=== PATIENT | male | born 1950 | race Caucasian/White ===

== ENCOUNTER 2021-02-04 10:39 | Inpatient (IN) ==
[2021-02-04 11:02] LABS: Hematocrit 46.6 % (42.0-52.0); Hemoglobin 15.3 gm/dL (13.5-18.0); Mean Cell Volume 85.3 fl (78-100); Mean Corpuscular Hgb Conc 32.8 g/dl (32-36); Mean Platelet Volume 9.1 fl (8-11.3); Neutrophil % 75.6 % (42-75.0); Platelet Count 283 K/mm3 (150-450); Red Blood Count 5.46 M/mm3 (4.7-6.0); Red Cell Distribution Width 14.1 % (11.5-14.0); White Blood Count 5.3 K/mm3 (4.0-10.5)
[2021-02-04 11:13] LABS: Urine Appearance Clear (CLEAR); Urine Bilirubin 3 mg/dl (NEGATIVE); Urine Blood Negative /ul (NEGATIVE); Urine Color Dark Yellow; Urine Ketone 50 mg/dL (NEGATIVE); Urine Nitrite Negative (NEGATIVE); Urine Protein 15 mg/dL (NEGATIVE); Urine Specific Gravity 1.025 SP.GR. (1.005-1.030); Urine Urobilinogen Normal (NORMAL); Urine WBC None Seen /hpf (0-5)
[2021-02-04 11:14] LABS: Urine Bacteria TRACE; Urine RBC None Seen /hpf (0-5)
[2021-02-04 11:19] LABS: Albumin * 3.7 gm/dl (3.4-5.0); Anion Gap 14.3 mmol/L (6.8-13.8); BUN/Creatinine Ratio 24.5 (9.0-21.6); Bilirubin, Total 0.9 mg/dL (0.0-1.1); Ca. Corrected For Albumin 9.1 mg/dL (8.4-10.2); Calcium * 9.2 mg/dL (7.9-10.9); Carbon Dioxide 28.1 mmol/L (24-32.6); Potassium 4.4 mmol/L (3.4-4.6); Total Protein 8.3 gm/dL (6.2-8.2)
[2021-02-04 11:20] LABS: CRP 4.1 mg/dL (0.0-0.9)
[2021-02-04] MEDS ORDERED: DIATRIZOATE MEGLUMINE, SODIUM 30 ML BTL PO ONE (11:31)
--- NOTE | 2021-02-04 14:22 | ERNOTE ---
Abdominal HPI - Narrative Date of Service: 02/04/21 - General Chief Complaint: Abdominal Pain Time Seen by Provider: 02/04/21 11:03 Source: patient, family, RN notes reviewed Exam Limitations: no limitations - Immun/Allergies/Home Medications Immunizatons: IMMUNIZATION HX Immunizations Up to Date Yes Allergies/Adverse Reactions: Allergies No Known Allergies Allergy (Verified 02/04/21 10:40) Home Medications: HOME MEDICATIONS multivitamin 1 tab PO DAILY 02/04/21 [Last Taken Unknown] - History of Present Illness Narrative: Tani is a 70-year-old male who presents to the emergency department for a possible bowel obstruction. He has not had a bowel movement since the . He began having abdominal pain at that time. He had some vomiting the following 2 evenings, but none since. He reports he has not been eating but has been able to tolerate liquids. He has felt like he has to have a bowel movement several times but has only passed a small amount of stool. He took Gas-X yesterday. He felt like this helped for a while and that he was doing better, but his symptoms persisted this morning. He reports having a bowel obstruction 2 years ago. He has no prior history of any abdominal surgeries. He has also never had a colonoscopy. Date (Duration): 01/31/21 Associated Symptoms: Absent: back pain, chest pain, fever/chills, swelling/mass in abdomen Prior Abdominal Problems: Present: similar symptoms Prior Treatment: Absent: recently seen Review of Systems - Review of Systems Constitutional: Present: malaise. Absent: fever, chills EYE: Present: no symptoms reported ENT: Present: no symptoms reported Respiratory: Absent: shortness of breath, cough Cardiology: Absent: chest pain, syncope, edema Gastrointestinal/Abdominal: Present: See HPI Genitourinary: Absent: dysuria, decreased urinary output Musculoskeletal: Absent: muscle pain, joint pain Skin: Absent: rash, lesions Neurological: Absent: headache, dizziness/light-headedness Endocrine: Present: no symptoms reported Hematologic/Lymphatic: Absent: easy bruising, easy bleeding Psych: Present: no symptoms reported Medical History (Last Reviewed 02/04/21 @ 17:09 by Rukhsana Kinciad NP) COVID-19 vaccine series completed Onset Date: ~12/2020 History of intestinal obstruction Onset Date: ~2018 No pertinent family history Surgical History: Surgical History (Last Reviewed 02/04/21 @ 17:09 by Rukhsana Kincaid NP) No pertinent past surgical history Family History: Family History (Last Reviewed 02/04/21 @ 17:09 by Rukhsana Kincaid NP) Other No pertinent family history Social History: (Last Reviewed 02/04/21 @ 17:09 by Rukhsana Kincaid NP) Social History: Marital status: household members: significant other current occupational status: unemployed Highest level of school completed/degree received: Associate degree: occupat Service: No Tobacco: Smoking Status: Former smoker Alcohol: alcohol intake: former Physical Exam - Physical Exam General Appearance: Present: wd/wn, alert, other - In no acute distress but appe ars mildly uncomfortable Head Exam: Present: normal inspection Eye Exam: Normal inspection: bilateral Neck: Present: normal inspection, nontender, supple, full range of motion Respiratory: Present: no respiratory distress, normal breath sounds, no accessory muscle use, lungs clear Cardiovascular/Chest: Present: regular rate, rhythm, normal peripheral pulses, systolic murmur Gastrointestinal/Abdominal: Present: soft, tenderness - Mild, diffuse, abnormal bowel sounds - Hypoactive, distended - Bloated appearance, patient states this is his normal Extremity Exam: Present: normal inspection, normal range of motion, no edema Neurological Exam: Present: alert, oriented, normal mood/affect, no motor/sensory deficits Skin Exam: Present: normal color, warm/dry Progress - Results and Orders Patient's Lab Results:: I have reviewed the patient's lab results. - Vital Signs Patient's Vital Signs:: I have reviewed the patient's vital signs. Vital Signs: Vital Signs 02/04/21 10:43 02/04/21 11:29 Temperature 36.7 C Pulse Rate 84 77 Respiratory Rate 15 15 Blood Pressure 157/80 H 154/61 H O2 Sat by Pulse Oximetry 99 95 - X-Ray X-Ray #1 X-Ray: abdomen Interpretation: Reviewed by me X-ray Comments: Technique: Supine and upright views of the abdomen obtained. A total of 4 images utilized. Comparison: None. Findings: Moderately dilated small bowel with air-fluid levels indicating partial mechanical small bowel obstruction. No pneumatosis or free air. There is air and stool in normal caliber colon and rectum. IMPRESSION: PARTIAL MECHANICAL SMALL BOWEL OBSTRUCTION WITH NO APPRECIABLE FREE AIR. Electronically signed by Victorino Fuller MD. - CT/Ultrasound CT/Ultrasound Narrative: CT abdomen/pelvis: IMPRESSION: 1. MODERATE GRADE PARTIAL COLONIC OBSTRUCTION WITH THE TRANSITION POINT IN THE DISTAL DESCENDING COLON. THIS IS SUSPICIOUS FOR A COLONIC MALIGNANCY UNTIL PROVEN OTHERWISE. 2. COLONIC DIVERTICULA WITH NO ACUTE DIVERTICULITIS. 3. LEFT RENAL CYST. Electronically signed by Victorino Fuller MD. - Progress/Reassessment Chief Complaint: Abdominal Pain Progress:: Unchanged Plan - Plan Plan: The patient did not require any pain medication and was able to tolerate drinking oral contrast for his CT scan without incident. The CT was notable for what appears to be an obstruction in the distal descending colon. Dr. Snyder was contacted and saw the patient in the emergency department. He plans to admit the patient to observation and perform a colonoscopy tomorrow. Bed assignment pending COVID-19 results. Departure Clinical Impression: Colonic obstruction - Departure Disposition: Still a patient Condition: Stable
--- NOTE | 2021-02-04 17:42 | HP ---
Chief Complaint - Chief Complaint Date of Service: 02/04/21 Time of Service: 15:00 Chief Complaint: Possible partial colonic obstruction History of Present Illness: On the morning of 02/01/2021 the patient noticed increased abdominal distention. He did not eat much. He had an episode of dry heaves in the evening and vomited up some yellow stuff followed by clear. The following day (Thursday) he took some Gas-X for about 24 hours. He still felt bloated and did not eat much. He had another episode of dry heaves Thursday night but did not bring up much. He felt some better on Thursday and actually passed some gas, but then the distention returned again today. He states he really does not have abdominal pain he was just sore from dry heaves. He is more comfortable if he lays still. It does not hurt his abdomen when he coughs or goes over bumps. He has not been febrile He apparently had a very similar episode of abdominal distention 2018. He was admitted overnight to the [facility]. They put down an NG tube and the he was fed and sent home. He did not have a CAT scan at that time. He has never had any abdominal operations. He has never had any colon screening studies. There is no family history of colon cancer He generally moves his bowels every other day or so. He occasionally has gone 2-1/2 or 3 days without a bowel movement. He generally does not get distended. He never has abdominal pain and has noticed no blood in his bowel movements although he may have hemorrhoids. He does not see a physician regularly and only takes a daily multiple vitamin Medical History (Last Reviewed 02/04/21 @ 17:34 by Princess Snyder MD) COVID-19 vaccine series completed Onset Date: ~12/2020 History of intestinal obstruction Onset Date: ~2018 No pertinent family history Surgical History: Surgical History (Last Reviewed 02/04/21 @ 17:34 by Princess Snyder MD) No pertinent past surgical history Family History: Family History (Last Reviewed 02/04/21 @ 17:34 by Princess Snyder MD) Other No pertinent family history Social History: (Last Reviewed 02/04/21 @ 17:34 by Princess Snyder MD) Social History: Marital status: household members: significant other current occupational status: unemployed Highest level of school completed/degree received: Associate degree: occupat Service: No Tobacco: Smoking Status: Former smoker Alcohol: alcohol intake: former Review Of Systems (GEN) - Review of Systems Generalized/Overall Review: Absent: Weakness, Chills, Fever, Weight loss EENTM: Present: No Symptoms Reported Respiratory: Present: No Symptoms Reported. Absent: Cough, Shortness of Breath Cardiac: Present: No Symptoms Reported. Absent: Chest Pain, Edema, Palpitations Abdominal: Present: Other - He has had abdominal distention since 02/01/2021. 2 episodes of dry heaves with a small amount of vomitus. He has not been eating much. He did pass some gas yesterday, and felt like he might move his bowels during the CAT scan Genitourinary: Present: Nocturia - Usually gets up once. Absent: Burning, Frequency Musculoskeletal: Present: No Symptoms Reported Neurological: Present: No Symptoms Reported Skin: Present: No Symptoms Reported Endocrine: Present: No Symptoms Reported Immunizations: IMMUNIZATION HX Immunizations Up to Date Yes Allergies/Adverse Reactions: Allergies Allergy/AdvReac Type Severity Reaction Status Date / Time No Known Allergies Allergy Verified 02/04/21 17:56 Home Medications: HOME MEDICATIONS multivitamin 1 tab PO DAILY 02/04/21 [Last Taken Unknown] Exam - Exam Vital Signs: Vital Signs - Last Taken Temp 36.7 C 02/04/21 10:43 Pulse 74 02/04/21 15:30 Resp 22 H 02/04/21 15:30 BP 151/63 H 02/04/21 15:30 Pulse Ox 97 02/04/21 15:30 Constitutional: Present: Alert, Oriented x3, Cooperative, Well developed, Well nourished, No distress, Overweight ENT Exam: Present: normal ENT inspection, other - Upper and lower dentures. Mallampati 2 airway Eye Exam: bilateral eye: normal inspection Neck: Present: non-tender, full range of motion, normal inspection, trachea midline Respiratory: Present: rhonchi - Clear with cough, wheezing - Clears with cough Cardiovascular/Chest: Present: normal peripheral pulses, regular rate, rhythm, no murmur Abdomen: Present: other - Significant abdominal distention with tympany to percussion. No percussion tenderness, discrete direct tenderness or rebound tenderness elicited. No masses. Specifically no tenderness in the left lateral abdomen /Rectal: Present: Exam deferred Extremity: Present: normal range of motion, normal inspection, no pedal edema, no calf tenderness Skin Exam: Present: normal color, warm/dry Neurologic: Present: manager chinese II-XII nml as tested, normal cerebellar test, no motor/sensory deficits, normal mood/affect, oriented x 3 Appearance: Present: appropriate appearance, appropriate insight, neat, no memory impairment Eye contact: Present: cooperative, good eye contact, normal speech Thoughts: Present: normal thought pattern Diagnostic Studies: Abnormal Lab Results 02/04/21 02/04/21 02/04/21 Range/Units 10:30 10:55 10:55 RDW 14.1 H (11.5-14.0) % Neutrophils % 75.6 H (42-75.0) % Lymphocytes % 15.2 L (20-51) % Lymphocytes # 0.80 L (1.5-3.5) k/mm3 Anion Gap 14.3 H (6.8-13.8) mmol/L BUN 25 H (6-23) mg/dL BUN/Creatinine Ratio 24.5 H (9.0-21.6) ALT 18 L (19-67) U/L C-Reactive Prot, Quant (0.0-0.9) mg/dL Total Protein 8.3 H (6.2-8.2) gm/dL Lipase (73-393) U/L Urine Protein 15 H (NEGATIVE) mg/dL Urine Bilirubin 3 H (NEGATIVE) mg/dl 02/04/21 Range/Units 10:55 RDW (11.5-14.0) % Neutrophils % (42-75.0) % Lymphocytes % (20-51) % Lymphocytes # (1.5-3.5) k/mm3 Anion Gap (6.8-13.8) mmol/L BUN (6-23) mg/dL BUN/Creatinine Ratio (9.0-21.6) ALT (19-67) U/L C-Reactive Prot, Quant 4.1 H (0.0-0.9) mg/dL Total Protein (6.2-8.2) gm/dL Lipase 32 L (73-393) U/L Urine Protein (NEGATIVE) mg/dL Urine Bilirubin (NEGATIVE) mg/dl Laboratory Results WBC 5.3 K/mm3 (4.0-10.5) 02/04/21 10:55 RBC 5.46 M/mm3 (4.7-6.0) 02/04/21 10:55 Hgb 15.3 gm/dL (13.5-18.0) 02/04/21 10:55 Hct 46.6 % (42.0-52.0) 02/04/21 10:55 MCV 85.3 fl (78-100) 02/04/21 10:55 MCH 28.0 pg (27-31) 02/04/21 10:55 MCHC 32.8 g/dl (32-36) 02/04/21 10:55 RDW 14.1 % (11.5-14.0) H 02/04/21 10:55 Plt Count 283 K/mm3 (150-450) 02/04/21 10:55 MPV 9.1 fl (8-11.3) 02/04/21 10:55 Immature Gran % (Auto) 0.40 % (0.001-0.429) 02/04/21 10:55 Immature Gran # (Auto) 0.02 K/mm3 (0.000-0.0310) 02/04/21 10:55 Neutrophils % 75.6 % (42-75.0) H 02/04/21 10:55 Lymphocytes % 15.2 % (20-51) L 02/04/21 10:55 Monocytes % 8.4 % (0.0-9) 02/04/21 10:55 Eosinophils % 0.2 % (0.0-3.0) 02/04/21 10:55 Basophils % 0.2 % (0.0-1.0) 02/04/21 10:55 Nucleated RBC % 0.0 k/mm3 (0-1) 02/04/21 10:55 Neutrophils # 4.0 K/mm3 (1.3-6.0) 02/04/21 10:55 Lymphocytes # 0.80 k/mm3 (1.5-3.5) L 02/04/21 10:55 Monocytes # 0.4 k/mm3 (0.0-1.0) 02/04/21 10:55 Eosinophils # 0.0 k/mm3 (0.0-0.7) 02/04/21 10:55 Absolute Basophils 0.0 k/mm3 (0.0-0.1) 02/04/21 10:55 Sodium 135 mmol/L (132-142) 02/04/21 10:55 Plasma Sodium 135 mmol/L (130-142) 02/04/21 10:55 Potassium 4.4 mmol/L (3.4-4.6) 02/04/21 10:55 Chloride 97 mmol/L (97-106) 02/04/21 10:55 Carbon Dioxide 28.1 mmol/L (24-32.6) 02/04/21 10:55 Anion Gap 14.3 mmol/L (6.8-13.8) H 02/04/21 10:55 BUN 25 mg/dL (6-23) H 02/04/21 10:55 Creatinine 1.02 mg/dL (0.4-1.4) 02/04/21 10:55 Est GFR (Non-Af Amer) 77 mL/min (60-130) 02/04/21 10:55 BUN/Creatinine Ratio 24.5 (9.0-21.6) H 02/04/21 10:55 Random Glucose 99 mg/dL (70-110) 02/04/21 10:55 Calcium 9.2 mg/dL (7.9-10.9) 02/04/21 10:55 Calcium Adj for Albumin 9.1 mg/dL (8.4-10.2) 02/04/21 10:55 Total Bilirubin 0.9 mg/dL (0.0-1.1) 02/04/21 10:55 AST 16 U/L (0-48) 02/04/21 10:55 ALT 18 U/L (19-67) L 02/04/21 10:55 Alkaline Phosphatase 94 U/L (50-170) 02/04/21 10:55 C-Reactive Prot, Quant 4.1 mg/dL (0.0-0.9) H 02/04/21 10:55 Total Protein 8.3 gm/dL (6.2-8.2) H 02/04/21 10:55 Albumin 3.7 gm/dl (3.4-5.0) 02/04/21 10:55 Lipase 32 U/L (73-393) L 02/04/21 10:55 Urine Color Dark yellow 02/04/21 10:30 Urine Appearance Clear (CLEAR) 02/04/21 10:30 Urine pH 6.0 pH (5.0-7.0) 02/04/21 10:30 Ur Specific [place] 1.025 SP.GR. (1.005-1.030) 02/04/21 10:30 Urine Protein 15 mg/dL (NEGATIVE) H 02/04/21 10:30 Urine Glucose (UA) Negative mg/dL (NEGATIVE) 02/04/21 10:30 Urine Ketones 50 mg/dL (NEGATIVE) 02/04/21 10:30 Urine Blood Negative /ul (NEGATIVE) 02/04/21 10:30 Urine Nitrate Negative (NEGATIVE) 02/04/21 10:30 Urine Bilirubin 3 mg/dl (NEGATIVE) H 02/04/21 10:30 Urine Urobilinogen Normal EU/dl (NORMAL) 02/04/21 10:30 Ur Leukocyte Esterase Negative /ul (NEGATIVE) 02/04/21 10:30 Urine RBC None seen /hpf (0-5) 02/04/21 10:30 Urine WBC None seen /hpf (0-5) 02/04/21 10:30 Ur Epithelial Cells 0-5 /hpf (0-5) 02/04/21 10:30 Urine Bacteria Trace (NONE) 02/04/21 10:30 Urine Culture Comments No culture indicated 02/04/21 10:30 SARS-CoV-2 (PCR) Not detected (NotDetected) 02/04/21 15:51 Initial abdominal x-ray revealed findings suggesting small bowel obstruction. Subsequent CT scan with p.o. contrast reveals a very capacious colon with gas through to the rectum. There is an area at the descending sigmoid junction which does not fill out completely Assessment/Plan - Assessment/Plan (1) Colonic obstruction Assessment: He has had no previous dedicated colon studies. He has a very distended colon with possible lesion at the sigmoid descending colon junction. There is gas distal to this, and the sigmoid is redundant. He has had a previous similar episode about 2 years ago. Benefits of colonoscopy and colon screening were reviewed with him and his and given to them. Explained the rationale for observation status for n.p.o. with IV hydration. There is not much stool in the colon on CAT scan and the p.o. contrast may produce some results, so will monitor his progress prior to administering additional prep prior to anticipated colonoscopy tomorrow. Encouraged ambulation to aid with colonic movement and also for VTE prophylaxis. Problem: Acute
[2021-02-04] MEDS ORDERED: BISACODYL 10 MG SUPP.RECT RC ONE (17:57)
[2021-02-05] MEDS ORDERED: SODIUM, POTASSIUM,MAG SULFATES 1 KIT KIT PO ONE (07:01)
[2021-02-05] MEDS: RINGER'S SOLUTION,LACTATED 1,000 ML IV PRN (07:16)
--- NOTE | 2021-02-05 12:48 | ANES ---
Anesthesia Pre Procedure Eval Vitals/Labs: Last Vital Signs Temp 36.8 C 02/05/21 10:37 Pulse 81 02/05/21 10:37 Resp 20 02/05/21 10:37 BP 166/76 H 02/05/21 10:37 Pulse Ox 95 02/05/21 10:37 HOME MEDICATIONS multivitamin 1 tab PO DAILY 02/04/21 [Last Taken Unknown] Allergies/Adverse Reactions: Allergies Allergy/AdvReac Type Severity Reaction Status Date / Time No Known Allergies Allergy Verified 02/04/21 17:56 - Planned Procedure Planned Procedure: colonic obstruction Medication List Reviewed:: Yes Allergies Verified: Yes Medical History (Last Reviewed 02/05/21 @ 12:47 by Billy Carmona CRNA) COVID-19 vaccine series completed Onset Date: ~12/2020 History of intestinal obstruction Onset Date: ~2018 No pertinent family history Surgical History (Last Reviewed 02/05/21 @ 12:48 by Billy Carmona CRNA) No pertinent past surgical history Family History (Last Reviewed 02/05/21 @ 12:48 by Billy Carmona CRNA) Other No pertinent family history - Family Anesthesia History Family History:: no untoward family reactions to anesthesia - Airway/Neck/Teeth Within Normal Limits:: Yes Denture Type: Full upper, Full lower Neck Exam: full range of motion Mallampatti Score: 2 Thyromental (T-M) distance: > 6 cm Mandibulo Hyoid distance: > 3 cm - Respiratory Respiratory Physical: lungs clear Smoking Status: Former smoker Sleep Apnea currently treated: No Sleep Apnea by current assessment: No - Cardiovascular Tolerate Activity: Fair Heart Sounds: S1 & S2, Regular, Murmur - Gastrointestinal NPO since: [place] - Anesthesia Assessment and Plan ASA Class: PS, III Anesthesia Type Plan: General ET Planned difficult intubation/equipment available: No
[2021-02-05] MEDS ORDERED: ONDANSETRON HCL/PF 2 MG/ML VIAL ONE (14:24)
[2021-02-05] MEDS ORDERED: PROPOFOL VIAL IV ONE (14:24)
[2021-02-05] MEDS ORDERED: ROCURONIUM BROMIDE 10 MG/ML VIAL ONE (14:25)
[2021-02-05] MEDS ORDERED: SUCCINYLCHOLINE CHLORIDE 20 MG/ML VIAL ONE (14:25)
--- NOTE | 2021-02-05 15:52 | ANES ---
Post Anesthesia Discharge - Transfer of Care Transfer of Care handoff given to nurse: Yes - Discharge from PACU Discharge from PACU when meets criteria: Yes - Awake and comfortable.
--- NOTE | 2021-02-05 16:11 | ANES ---
Post Anesthesia Assessment - Vital Signs Vitals: Last Vital Signs Temp 37.0 C 02/05/21 16:00 Pulse 79 02/05/21 16:00 Resp 20 02/05/21 16:00 BP 135/70 02/05/21 16:00 Pulse Ox 95 02/05/21 16:00 Airway Patency: Normal - Mental Status Level Of Consciousness: Awake, Alert, Appropriate - Pain Level Pain Score: 0 - N/V Assessment Nausea/Vomiting Presence: None Dehydration:: No
--- NOTE | 2021-02-05 17:59 | OR ---
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 CAT scan demonstrates area of possible tumor at the junction of descending and sigmoid colon. 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 General endotracheal anesthetic was administered. A nasogastric tube was passed. The patient was then placed in the left lateral position with appropriate padding and monitoring. The perineum was inspected. There was no evidence of pilonidal disease or skin breakdown. The external appearance of the anus was normal. Sphincter tone was good. The flexible fiberoptic colonoscope was inserted into the rectum. The rectal mucosa and submucosal vascular pattern appeared normal. There was residual liquid stool however the scope could be safely advanced under direct vision. The scope was advanced through the sigmoid colon without air insufflation. At approximately 50 cm a neoplastic lesion was encountered. The area was then irrigated with saline and suctioned. The lesion was circumferential in nature, and the central opening was insufficient to allow safe intubation. A biopsy of the lesion was obtained. The area appeared hemostatic. The scope was then withdrawn slightly and suction used in an attempt to decompress the proximal colon as much as possible. The scope was then slowly withdrawn and the distal colon inspected. There were no polyps identified, and no diverticular openings were demonstrated. The scope was gradually withdrawn to the level of the rectum. As much proximal bowel content as possible was removed with suction. The scope was withdrawn from the patient and the procedure terminated. The patient tolerated the anesthetic and procedure well without complication and was transferred recovery room awake, extubated, and in stable condition. A chest x-ray was obtained in the recovery room. The NG tube was advanced sufficient to allow the proximal side-port to be in the stomach. The patient was then transferred back to the floor awake and in stable condition. I discussed the findings with the patient and his family. I explained that the bowel was completely obstructed and he would require an operation to relieve the obstruction. A pamphlet was used to demonstrate the proposed resection. The risks and possible complications of the surgery were explained and discussed in detail. After an interactive discussion his questions were answered to his apparent satisfaction and he has given informed consent for a colon resection. He understands that a colostomy may be needed if anastomosis does not appear safe.
--- NOTE | 2021-02-05 18:06 | PN ---
Subjective - Date and Time Seen Date: 02/05/21 Time: 17:59 Subjective Narrative: He was admitted last night with abdominal distention and CAT scan evidence of colon obstruction at the junction of the descending and sigmoid colon. 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 A nasogastric tube was placed. Objective - Review of Systems Generalized/Overall Review: Denies: Chills, Fever EENTM: Reports: No Symptoms Reported, Other - Some discomfort from the nasogastric tube in the left nostril Respiratory: Denies: Cough, Shortness of Breath Cardiac: Denies: Chest Pain Abdominal: Reports: Other - He states his abdomen feels much better. He feels l ess distended Genitourinary Symptoms: Reports: No Symptoms Reported Musculoskeletal Complaints: Reports: No Symptoms Reported Neurological: Reports: No Symptoms Reported Skin: Reports: No Symptoms Reported - Vitals Vitals: Last Vital Signs Temp 37.0 C 02/05/21 16:00 Pulse 79 02/05/21 16:00 Resp 20 02/05/21 16:00 BP 135/70 02/05/21 16:00 Pulse Ox 95 02/05/21 16:00 - EKG/Xray Findings XRAY: chest - The portable chest x-ray was reviewed by me in the recovery room and the nasogastric tube adjusted prior to the formal read by the radiologist. - Exam Constitutional: Present: Alert, Oriented x3, Cooperative, No distress ENT Exam: Present: normal ENT inspection, other - NG tube left nostril Neck: Present: full range of motion, normal inspection Respiratory: Present: no respiratory distress Cardiovascular/Chest: Present: regular rate, rhythm Abdomen: Present: other - He is still distended, but less so. Tympanic however no percussion, direct, or rebound tenderness. /Rectal: Present: Other - Exam in the OR was normal Skin Exam: Present: normal color, warm/dry Neurologic: Present: cotton dispatcher II-XII nml as tested, no motor/sensory deficits Appearance: Present: appropriate appearance, appropriate insight, no memory impairment Eye contact: Present: cooperative, good eye contact, normal speech Thoughts: Present: normal thought pattern, no apparent hallucination Assessment/Plan Plan Narrative: A pamphlet on: Surgery was reviewed with him and his family. I explained that the lesion in the colon is most likely a carcinoma. He will need an operation to relieve the obstruction. Explained either diverting colostomy, resection with colostomy, or a primary operation with reanastomosis. There is a risk of infection or anastomotic leak however the one stage operation is feasible. I explained the possible risks and complications of the surgery as well as the expected postoperative course. Other treatment options will depend upon the final pathology report on the resected specimen. After an interactive discussion his questions were answered to his apparent satisfaction and he has given informed consent for colon resection which will be performed tomorrow. Plan would be for preoperative antibiotics preop, SCDs, epidural for postoperative pain control. We will have him start incentive spirometry tonight for practice. - Problems/Diagnosis (1) Colonic obstruction Problem: Acute
[2021-02-05] MEDS ORDERED: CEFOXITIN SODIUM 2 GM in DEXTROSE 5 % IN WATER 100 ML IV ONE ×2 (18:07)
[2021-02-06] MEDS: RINGER'S SOLUTION,LACTATED 1,000 ML IV PRN ×5 (00:14→16:53)
[2021-02-06] MEDS ORDERED: CEFOXITIN SODIUM 2 GM in DEXTROSE 5 % IN WATER 100 ML IV PRN ×2 (06:00)
[2021-02-06] MEDS ORDERED: LIDOCAINE HCL 20 ML VIAL ONE (12:11)
[2021-02-06] MEDS ORDERED: ONDANSETRON HCL/PF 2 MG/ML VIAL ONE (12:12)
[2021-02-06] MEDS ORDERED: NEOSTIGMINE METHYLSULFATE 1 MG/ML VIAL ONE (12:12)
[2021-02-06] MEDS ORDERED: GLYCOPYRROLATE 0.2 MG/ML VIAL ONE (12:12)
[2021-02-06] MEDS ORDERED: PROPOFOL VIAL IV ONE (12:12)
[2021-02-06] MEDS ORDERED: fentaNYL CITRATE/PF 50 MCG/ML AMPUL ONE (12:12)
[2021-02-06] MEDS ORDERED: SUCCINYLCHOLINE CHLORIDE 20 MG/ML VIAL ONE (12:13)
[2021-02-06] MEDS ORDERED: ROCURONIUM BROMIDE 10 MG/ML VIAL ONE (12:13)
[2021-02-06] MEDS ORDERED: HYDROmorphone HCL 2 MG/ML VIAL IV PRN (12:27)
[2021-02-06] MEDS ORDERED: diphenhydrAMINE HCL 50 MG/ML VIAL IV PRN (12:27)
[2021-02-06] MEDS ORDERED: NALOXONE HCL 0.4 MG/ML VIAL IV PRN (12:27)
[2021-02-06] MEDS ORDERED: PROCHLORPERAZINE EDISYLATE 5 MG/ML VIAL IV PRN (12:27)
[2021-02-06] MEDS ORDERED: BACITRACIN 50,000 UNITS VIAL ONE (14:38)
[2021-02-06] MEDS ORDERED: MIDAZOLAM HCL/PF 1 MG/ML VIAL ONE (14:58)
[2021-02-06] MEDS: BUPIVACAINE HCL/0.9 % NACL/PF 250 ML EP PRN (16:00)
[2021-02-06] MEDS ORDERED: BACITRACIN 50,000 UNITS VIAL IR ONE (16:24)
--- NOTE | 2021-02-06 20:18 | ANES ---
Post Anesthesia Discharge - Transfer of Care Transfer of Care handoff given to nurse: Yes - Discharge from PACU Discharge from PACU when meets criteria: Yes - Discharge to ASU Discharge to ASU-no complications/pt stable: Yes
[2021-02-06] MEDS: HYDROmorphone HCL 2 MG/ML VIAL IV PRN (20:28)
--- NOTE | 2021-02-06 20:29 | ANES ---
Anesthesia Pre Procedure Eval Vitals/Labs: Last Vital Signs Temp 36.9 C 02/06/21 20:00 Pulse 77 02/06/21 20:20 Resp 29 H 02/06/21 20:20 BP 109/44 02/06/21 20:20 Pulse Ox 98 02/06/21 20:20 HOME MEDICATIONS multivitamin 1 tab PO DAILY 02/04/21 [Last Taken Unknown] Allergies/Adverse Reactions: Allergies Allergy/AdvReac Type Severity Reaction Status Date / Time No Known Allergies Allergy Verified 02/04/21 17:56 - Planned Procedure Planned Procedure: colonic obstruction Medication List Reviewed:: Yes Allergies Verified: Yes Medical History (Last Reviewed 02/05/21 @ 12:47 by Billy Carmona CRNA) COVID-19 vaccine series completed Onset Date: ~12/2020 History of intestinal obstruction Onset Date: ~2018 No pertinent family history Surgical History (Last Reviewed 02/05/21 @ 12:48 by Billy Carmona CRNA) No pertinent past surgical history Family History (Last Reviewed 02/05/21 @ 12:48 by Billy Carmona CRNA) Other No pertinent family history - Family Anesthesia History Family History:: no untoward family reactions to anesthesia, no familial bleeding tendencies, no family history of clotting disorders, no family history of premature - Airway/Neck/Teeth Within Normal Limits:: Yes Teeth Condition: intact Denture Type: Full upper, Full lower Mallampatti Score: 3 Thyromental (T-M) distance: > 6 cm Mandibulo Hyoid distance: > 3 cm - Respiratory Respiratory Physical: lungs clear Smoking Status: Former smoker Discussed smoking cessation including day of surgery: No Sleep Apnea currently treated: No Sleep Apnea by current assessment: No Discussed Risks/Treatment of LEO: No - Cardiovascular Tolerate Activity: Fair Heart Sounds: S1 & S2, Regular - Gastrointestinal NPO since: mn - Anesthesia Assessment and Plan ASA Class: PS, III Anesthesia Type Plan: General ET, Epidural - epidural for postop analgesia
--- NOTE | 2021-02-06 20:50 | ANES ---
Post Anesthesia Assessment - Vital Signs Vitals: Last Vital Signs Temp 37.4 C 02/06/21 20:45 Pulse 80 02/06/21 20:45 Resp 12 02/06/21 20:45 BP 112/52 02/06/21 20:45 Pulse Ox 96 02/06/21 20:45 Airway Patency: Normal - Mental Status Level Of Consciousness: Awake - Pain Level Pain Score: 9 - N/V Assessment Nausea/Vomiting Presence: None Dehydration:: No
--- NOTE | 2021-02-06 22:43 | OR ---
Operative Report - Dictated Report Narrative: OPERATIVE REPORT DATE OF OPERATION: 02/06/2021 PREOPERATIVE DIAGNOSIS: Left colon cancer with colon obstruction POSTOPERATIVE DIAGNOSIS: Same (pathology pending) OPERATION: Left colon resection with Jaziel procedure (end descending colostopy and Jaziel pouch) SURGEON: Princess Snyder MD ANESTHESIA: Epidural/general endotracheal Eddie Chadwick CRNA INDICATIONS FOR PROCEDURE: The patient is a 70-year-old male presented with 4- day history of obstipation and abdominal distention. He was found to have CT scan evidence of high-grade obstruction from a possible lesion in the left colon. He underwent endoscopy which revealed a lesion at 50 cm which appeared grossly malignant. The lesion could not be traversed. A biopsy was taken. He has remained obstructed despite NG suction. FINDINGS: Colon obstruction from a 5-7 cm mass at the junction between the descending and sigmoid colon, adherent to the anterolateral abdominal wall. NARRATIVE OF PROCEDURE: The patient was identified preoperatively and prior to the administration of anesthetic a multidisciplinary timeout was observed. An epidural catheter was placed, the patient was placed supine, SCDs were applied, and general endotracheal anesthetic was administered. A Adam catheter was plac ed. The patient's abdomen was prepped with Betadine and a generous operating field outlined with 4 sterile towels. The remainder the patient was covered with a sterile disposable drape. A midline skin incision was made scarring to the left of the umbilicus. Dissection was carried through subcutaneous tissue with electrocautery until the fascia of the linea alba was encountered. This was incised. The peritoneum was elevated and incised to allow entry into the abdomen under direct vision. The small intestine immediately visible was slightly dilated but appeared otherwise normal. There was no immediate peritoneal fluid. The fascial and peritoneal incisions were extended. Manual exploration revealed the NG tube to be in good position in the mid stomach. The surface of the liver was smooth to palpation. A firm mass was palpated in the left lateral abdomen a Bookwalter self-retaining retractor was placed moist laparotomy packs were used to expose the left lateral abdomen. The dilated descending colon and collapsed sigmoid colon were then traced to the mass which was densely adherent to the left anterolateral abdominal wall. The peritoneum of the abdominal wall around the mass was incised and the mass dissected free from the lateral abdominal wall. There was leakage of stool which was controlled by application of a bowel clamp proximal to the tumor. The area was irrigated with bacitracin containing saline until clean. A point was chosen in the sigmoid colon distal to the mass and the bowel transected with a MARYLOU stapling device. The mesocolon was then developed with a LigaSure to allow mobilization of the bowel up to the tumor. Dissection was then continued behind the tumor until the descending colon was mobilized as well, up to the splenic flexure. Normal appearing descending colon was then transected proximal to the tumor with a MARYLOU stapling device. The colon specimen was then passed to the back table. The lateral abdomen was then again irrigated with bacitracin containing saline until the return was clear. The area where the tumor was adherent to the abdominal wall was inspected, and additional tissue was removed and submitted separately to pathology. Next attention was turned to creating a colostomy. A circular portion of skin was removed from the left upper quadrant and dissection carried through subcutaneous tissue until the musculature was encountered. The muscle was then split with offset cruciate incisions until the abdomen was entered. The end of the descending colon was then brought through the opening. After receiving a correct sponge needle and instrument count attention was turned to closing the abdomen. The abdomen was then again thoroughly irrigated with bacitracin containing saline. There was no evidence of gross residual contamination. Hemostasis appeared complete. A large round Bigg-Lawler drain was placed adjacent to the area of resection along the left gutter and brought out through the skin of the left lower quadrant using a trocar. It was secured to the skin with a silk suture, dressed with a split Mepilex border, and connected to its own suction container. The small bowel and greater omentum were placed in an anatomic position. The fascia and peritoneum were approximated with a running suture of PDS. The subcutaneous tissue was irrigated clean and packed with 2 inch iodoform gauze. A dressing of Mepilex border and Medipore tape was applied. Attention was then directed to maturing the colostomy. The bowel was secured circumferentially to the layers of the musculature of the abdominal wall with interrupted sutures of 2-0 antibiotic- containing Vicryl. The bowel was then secured to the skin with interrupted sutures of 2-0 antibiotic-containing Vicryl. The colostomy was then opened and matured circumferentially to the skin surface with interrupted sutures of 3-0 chromic. The colostomy was seen to be viable, palpably widely patent, with production of gas and liquid stool. An ostomy wafer and appliance were then placed. The operative procedure was terminated at this point. The patient tolerated the anesthetic and procedure well. There was no measurable blood loss. He was transferred to the recovery room awake, extubated, and in stable condition. I explained the operative findings and operative procedure to his using diagrams and a pamphlet. Explained what to expect in terms of postoperative course, and that future treatment will depend upon the fineal pathology report and the patient's progress. She was encouraged to write down questions she or her family have to make sure they are addressed as we go. Reviewed and electronically signed
--- NOTE | 2021-02-06 22:47 | PN ---
Dictated Progress Note - Date and Time Seen: Date: 02/06/21 Time: 22:44 - Progress Note Narrative: Vital Signs - Last Taken Temp 37.4 C 02/06/21 20:45 Pulse 80 02/06/21 20:45 Resp 12 02/06/21 20:45 BP 112/52 02/06/21 20:45 Pulse Ox 96 02/06/21 20:45 The patient states he is comfortable. He denies discomfort except some stiffness in his shoulders. His vital signs are stable. He is well oxygenated. He is making good urine. His dressings are dry there is a small amount of stool in the colostomy. I had a long discussion with the patient's and explained what was done at surgery using diagrams and a pamphlet. Plan at this time is to continue NG suction with IV hydration. The epidural will stay in place for 3 days. SCDs will be used for VTE prophylaxis. He will be maintained on IV Zosyn. The Adam catheter will be removed timely.
[2021-02-06] MEDS: PIPERACILLIN SODIUM/TAZOBACTAM 3.375 GM in DEXTROSE 5 % IN WATER 100 ML IV SCH ×2 (23:38)
[2021-02-07] MEDS: RINGER'S SOLUTION,LACTATED 1,000 ML IV PRN ×2 (01:12→08:00)
[2021-02-07 06:26] LABS: Hematocrit 36.1 % (42.0-52.0); Hemoglobin 11.6 gm/dL (13.5-18.0); Mean Cell Volume 87.6 fl (78-100); Mean Corpuscular Hemoglobin 28.2 pg (27-31); Mean Corpuscular Hgb Conc 32.1 g/dl (32-36); Mean Platelet Volume 9.6 fl (8-11.3); Neutrophil # 5.7 K/mm3 (1.3-6.0); Neutrophil % 89.1 % (42-75.0); Platelet Count 165 K/mm3 (150-450); Red Blood Count 4.12 M/mm3 (4.7-6.0); Red Cell Distribution Width 14.3 % (11.5-14.0); White Blood Count 6.4 K/mm3 (4.0-10.5)
[2021-02-07 06:33] LABS: Albumin * 2.3 gm/dl (3.4-5.0); Anion Gap 14.3 mmol/L (6.8-13.8); Bilirubin, Total 0.9 mg/dL (0.0-1.1); Ca. Corrected For Albumin 8.6 mg/dL (8.4-10.2); Calcium * 7.6 mg/dL (7.9-10.9); Carbon Dioxide 28.9 mmol/L (24-32.6); Potassium 3.2 mmol/L (3.4-4.6); Total Protein 5.4 gm/dL (6.2-8.2)
[2021-02-07] MEDS: PIPERACILLIN SODIUM/TAZOBACTAM 3.375 GM in DEXTROSE 5 % IN WATER 100 ML IV SCH ×4 (06:42→14:13)
--- NOTE | 2021-02-07 07:37 | PN ---
Subjective - Date and Time Seen Date: 02/07/21 Time: 07:35 Subjective Narrative: Patient states pain is well controlled. He had a good night sleep. Objective Objective Narrative: Thoracic epidural intact and secured to back. - Review of Systems Generalized/Overall Review: Reports: No Symptoms Reported - Vitals Vitals: Last Vital Signs Temp 36.8 C 02/07/21 06:39 Pulse 83 02/07/21 06:39 Resp 16 02/07/21 06:39 BP 112/49 02/07/21 06:39 Pulse Ox 90 L 02/07/21 06:39 - Abnormal Lab Findings Abnormal Lab Findings: Abnormal Lab Results 02/07/21 02/07/21 Range/Units 06:16 06:16 RBC 4.12 L (4.7-6.0) M/mm3 Hgb 11.6 L (13.5-18.0) gm/dL Hct 36.1 L (42.0-52.0) % RDW 14.3 H (11.5-14.0) % Neutrophils % 89.1 H (42-75.0) % Lymphocytes % 5.1 L (20-51) % Lymphocytes # 0.33 L (1.5-3.5) k/mm3 Potassium 3.2 L D (3.4-4.6) mmol/L Anion Gap 14.3 H (6.8-13.8) mmol/L Calcium 7.6 L (7.9-10.9) mg/dL ALT 13 L (19-67) U/L Total Protein 5.4 L (6.2-8.2) gm/dL Albumin 2.3 L (3.4-5.0) gm/dl - Exam Constitutional: Present: Alert, Oriented x3, Cooperative, No distress Extremity: Present: normal range of motion Cauti Physician Documentation - Urinary Catheter Management Coude Date of Insertion: 02/06/21 Time of Insertion: 15:55 Assessment/Plan Plan Narrative: Continue thoracic epidural at current settings.
[2021-02-07] MEDS: POTASSIUM CHLORIDE 20 MEQ in 0.5 NORMAL SALINE 1,000 ML IV SCH ×3 (09:49→21:55)
[2021-02-07] MEDS: PANTOPRAZOLE SODIUM 40 MG in NORMAL SALINE 100 ML IV SCH (10:27)
[2021-02-07] MEDS: BUPIVACAINE HCL/0.9 % NACL/PF 250 ML EP PRN (11:40)
[2021-02-07] MEDS: ACETAMINOPHEN 1,000 MG/100 ML BTL IV PRN (12:35)
--- NOTE | 2021-02-07 14:12 | PN ---
Subjective - Date and Time Seen Date: 02/07/21 Time: 14:03 Subjective Narrative: He was originally admitted with a 4-day history of obstipation and abdominal distention. Initial CT scan showed questionable partial colonic obstruction from a potential lesion at the junction of the descending and sigmoid colon. He underwent colonoscopy with the visualization of a malignant lesion which could not be traversed. A biopsy was taken. He was taken to the operating room yesterday and underwent a Jaziel procedure following resection of the obstruction. He has some numbness and decreased use of his lower extremities left greater than right. He does not have much abdominal discomfort. He did have some shoulder discomfort. His vital signs have remained stable however today he has a temperature elevation to 38 1. His sodium is upper limits of normal and his potassium is 3.2. His his urine output has remained adequate but low. He is having stool through the colostomy but there is still significant NG output. Minimal LOTUS output. Objective - Review of Systems Generalized/Overall Review: Reports: Fever. Denies: Chills EENTM: Reports: No Symptoms Reported, Other - He had a little heartburn from the NG tube Respiratory: Reports: Other - Is using his incentive spirometer. Denies: Cough, Shortness of Breath Cardiac: Denies: Chest Pain, Palpitations Abdominal: Reports: Other - He states his abdominal pain is controlled with the epidural Genitourinary Symptoms: Reports: No Symptoms Reported, Other - Adam functioning well Musculoskeletal Complaints: Denies: Joint Pain, Back Pain, Neck Pain Neurological: Reports: Numbness, Weakness - Secondary to the epidural Skin: Reports: Other - He has some flushing - Vitals Vitals: Last Vital Signs Temp 38.0 C 02/07/21 13:31 Pulse 83 02/07/21 13:31 Resp 16 02/07/21 10:34 BP 115/48 02/07/21 13:31 Pulse Ox 94 02/07/21 13:31 - Abnormal Lab Findings Abnormal Lab Findings: Abnormal Lab Results 02/07/21 02/07/21 Range/Units 06:16 06:16 RBC 4.12 L (4.7-6.0) M/mm3 Hgb 11.6 L (13.5-18.0) gm/dL Hct 36.1 L (42.0-52.0) % RDW 14.3 H (11.5-14.0) % Neutrophils % 89.1 H (42-75.0) % Lymphocytes % 5.1 L (20-51) % Lymphocytes # 0.33 L (1.5-3.5) k/mm3 Potassium 3.2 L D (3.4-4.6) mmol/L Anion Gap 14.3 H (6.8-13.8) mmol/L Calcium 7.6 L (7.9-10.9) mg/dL ALT 13 L (19-67) U/L Total Protein 5.4 L (6.2-8.2) gm/dL Albumin 2.3 L (3.4-5.0) gm/dl - Exam Constitutional: Present: Alert, Oriented x3, Cooperative, Well nourished, Mild distress ENT Exam: Present: normal ENT inspection, other - Flushed Neck: Present: full range of motion, normal inspection Respiratory: Present: no respiratory distress Cardiovascular/Chest: Present: regular rate, rhythm - Occasional skipped beat (not new) Abdomen: Present: other - Minimal drainage at the lower end of the dressing on the abdomen. Functioning colostomy. Sanguinous LOTUS output Extremity: Present: other - He can move his left leg a little bit cannot move his right leg. Skin Exam: Present: other - Flushed Neurologic: Present: other - He can minimally move his left leg but cannot move the right leg and has some numbness Appearance: Present: appropriate appearance, appropriate insight, no memory impairment Eye contact: Present: cooperative, good eye contact, normal speech Thoughts: Present: normal thought pattern Cauti Physician Documentation - Urinary Catheter Management Coude Reason for Continuing Indwelling Catheter: Measure accurate output Date of Insertion: 02/06/21 Time of Insertion: 15:55 Assessment/Plan Plan Narrative: I discussed the findings of the operation and what was done at length with the patient. He has colostomy function. Still has significant NG output. Some numbness and weakness from the epidura, however has improved over the course of the day. His pain is controlled Most likely source for his elevated temperature is atelectasis as he had just quit smoking prior to the recent hospitalization. We will stressed the use of incentive spirometer and add Coronet. Continue IV Zosyn We will change IV fluids to D5 0.45 with 20 mill equivalents of potassium and increase the IV rate to 175 mL/h. We will continue the catheter to accurately monitor urine output Continue SCDs. - Problems/Diagnosis (1) Colonic obstruction Problem: Acute
--- NOTE | 2021-02-07 18:39 | PN ---
Subjective - Date and Time Seen Date: 02/06/21 Time: 09:00 Subjective Narrative: This progress note was entered to cover the visit(s) on 03/10/2021 because the original progress note from 03/09/2021 was entered in the wrong format. He was originally admitted with a 4-day history of obstipation and abdominal distention. Initial CT scan showed questionable partial colonic obstruction from a potential lesion at the junction of the descending and sigmoid colon. He underwent colonoscopy with the visualization of a malignant lesion which could not be traversed. He has had no bowel activity with nasogastric suction Objective - Review of Systems Generalized/Overall Review: Denies: Chills, Fever EENTM: Reports: No Symptoms Reported, Other - Some rotation from the NG tube Respiratory: Denies: Cough, Shortness of Breath Cardiac: Denies: Chest Pain, Palpitations Abdominal: Reports: Other - He is still distended. He is "uncomfortable" but there is no "pain". Denies: Nausea, Vomiting Genitourinary Symptoms: Reports: No Symptoms Reported Musculoskeletal Complaints: Reports: No Symptoms Reported Neurological: Reports: No Symptoms Reported Skin: Reports: No Symptoms Reported - Vitals Vitals: Last Vital Signs Temp 36.3 02/06/21 06;00 Pulse 73 02/06/21 06;00 Resp 16 02/06/21 06;00 BP 101/55 02/06/21 06;00 Pulse Ox 94 02/06/21 06;00 - Abnormal Lab Findings Abnormal Lab Findings: Abnormal Lab Results 02/07/21 02/07/21 Range/Units 06:16 06:16 RBC 4.12 L (4.7-6.0) M/mm3 Hgb 11.6 L (13.5-18.0) gm/dL Hct 36.1 L (42.0-52.0) % RDW 14.3 H (11.5-14.0) % Neutrophils % 89.1 H (42-75.0) % Lymphocytes % 5.1 L (20-51) % Lymphocytes # 0.33 L (1.5-3.5) k/mm3 Potassium 3.2 L D (3.4-4.6) mmol/L Anion Gap 14.3 H (6.8-13.8) mmol/L Calcium 7.6 L (7.9-10.9) mg/dL ALT 13 L (19-67) U/L Total Protein 5.4 L (6.2-8.2) gm/dL Albumin 2.3 L (3.4-5.0) gm/dl - Exam Constitutional: Present: Alert, Oriented x3, Cooperative, Well developed, Well nourished, Mild distress ENT Exam: Present: normal ENT inspection, other - NG tube in good position Neck: Present: full range of motion, normal inspection Respiratory: Present: no respiratory distress Cardiovascular/Chest: Present: regular rate, rhythm Abdomen: Present: other - Is still distended but slightly less so. Soft. Very tympanic. No percussion tenderness. No discrete point tenderness or rebound tenderness elicited /Rectal: Present: Exam deferred Extremity: Present: normal range of motion, normal inspection, no pedal edema, no calf tenderness Skin Exam: Present: normal color, warm/dry Neurologic: Present: head strength and conditioning coach II-XII nml as tested, normal cerebellar test, no motor/sensory deficits Appearance: Present: appropriate appearance, appropriate insight, no memory impairment Eye contact: Present: cooperative, good eye contact, normal speech Thoughts: Present: normal thought pattern Assessment/Plan Plan Narrative: I discussed the situation at length with both the patient and his using diagrams and pamphlets. His colon is obstructed. This is unlikely to resolve with nonoperative management. The etiology of the obstruction is most likely malignant. I discussed the options of resection with re-anastomosis, or because the bowel is not prepped, relief of the obstruction by resection and creation of an end descending colostomy and Jaziel pouch. What actually will be done depends upon what is found at operation. After interactive discussion his and his 's questions have been answered to their apparent satisfaction and he has given informed consent for exploratory laparotomy for colon resection including the possibility of a colostomy. We will use preoperative IV Mefoxin, SCDs, with a plan for an epidural catheter and short-term Adam catheter. Stressed the importance of incentive spirometry preop teaching - Problems/Diagnosis (1) Colonic obstruction Problem: Acute
[2021-02-07] MEDS: HYDROmorphone HCL 2 MG/ML VIAL IV PRN (20:42)
[2021-02-08] MEDS: BUPIVACAINE HCL/0.9 % NACL/PF 250 ML EP PRN ×2 (01:43→15:18)
[2021-02-08] MEDS: ACETAMINOPHEN 1,000 MG/100 ML BTL IV PRN ×2 (03:36→16:18)
[2021-02-08] MEDS: POTASSIUM CHLORIDE 20 MEQ in 0.5 NORMAL SALINE 1,000 ML IV SCH ×4 (04:42→22:30)
--- NOTE | 2021-02-08 08:13 | PN ---
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 He did sleep some last night. He can move his left leg well but the right leg is still numb and only moves a little Objective - Review of Systems Generalized/Overall Review: Denies: Chills, Fever EENTM: Reports: No Symptoms Reported Respiratory: Reports: No Symptoms Reported, Other - SaO2 good on room air. Denies: Cough, Shortness of Breath Cardiac: Denies: Chest Pain, Palpitations Abdominal: Reports: Other - Discomfort is controlled. Genitourinary Symptoms: Reports: No Symptoms Reported Musculoskeletal Complaints: Reports: Other - Limited motion right leg Neurological: Reports: Numbness, Tingling, Weakness Skin: Reports: No Symptoms Reported Endocrine: Reports: No Symptoms Reported - Vitals Vitals: Last Vital Signs Temp 36.1 C 02/08/21 06:30 Pulse 78 02/08/21 06:30 Resp 20 02/08/21 06:30 BP 102/53 02/08/21 06:30 Pulse Ox 93 02/08/21 06:30 - Exam Constitutional: Present: Alert, Oriented x3, Cooperative, No distress ENT Exam: Present: normal ENT inspection, other - NG good position Neck: Present: normal inspection Respiratory: Present: no respiratory distress Cardiovascular/Chest: Present: regular rate, rhythm Abdomen: Present: other - Will change dressing later today Extremity: Present: normal inspection Skin Exam: Present: normal color Neurologic: Present: motor weakness - Bilateral lower extremities right much greater than left, sensory deficit - Numbness from the epidural Eye contact: Present: cooperative, good eye contact, normal speech Thoughts: Present: normal thought pattern Cauti Physician Documentation - Urinary Catheter Management Coude Urethral Indwelling: Yes Reason for Continuing Indwelling Catheter: Epidural catheter Date of Insertion: 02/06/21 Time of Insertion: 15:55 Assessment/Plan Plan Narrative: Will trial clamp NG with a cup of coffee this morning. May try to sitting at the side of the bed depending on how well he can use his legs. We will plan to change the dressing later today. Would like to have wound center see him about a possible wound VAC - Problems/Diagnosis (1) Colonic obstruction Problem: Acute
[2021-02-08] MEDS: PANTOPRAZOLE SODIUM 40 MG in NORMAL SALINE 100 ML IV SCH (10:09)
--- NOTE | 2021-02-08 11:15 | PN ---
Subjective - Date and Time Seen Date: 02/08/21 Time: 11:12 Subjective Narrative: Patient states pain is well controlled. Reports right leg weakness with frequent patient controlled epidural administrations. Objective Objective Narrative: Thoracic epidural intact and secured to back. - Review of Systems Generalized/Overall Review: Reports: No Symptoms Reported - Vitals Vitals: Last Vital Signs Temp 38.6 C H 02/08/21 10:44 Pulse 85 02/08/21 10:44 Resp 20 02/08/21 06:30 BP 102/53 02/08/21 06:30 Pulse Ox 95 02/08/21 10:44 - Exam Constitutional: Present: Alert, Oriented x3, Cooperative, No distress Extremity: Present: normal range of motion Cauti Physician Documentation - Urinary Catheter Management Coude Urethral Indwelling: Yes Date of Insertion: 02/06/21 Time of Insertion: 15:55 Assessment/Plan Plan Narrative: Continue epidural at present rate and settings.
[2021-02-09] MEDS: POTASSIUM CHLORIDE 20 MEQ in 0.5 NORMAL SALINE 1,000 ML IV SCH ×3 (06:01→20:20)
[2021-02-09] MEDS: BUPIVACAINE HCL/0.9 % NACL/PF 250 ML EP PRN (07:25)
[2021-02-09 07:40] LABS: Hemoglobin 10.6 gm/dL (13.5-18.0); Mean Cell Volume 87.3 fl (78-100); Mean Corpuscular Hgb Conc 32.1 g/dl (32-36); Mean Platelet Volume 10.1 fl (8-11.3); Neutrophil # 6.2 K/mm3 (1.3-6.0); Platelet Count 143 K/mm3 (150-450); Red Blood Count 3.78 M/mm3 (4.7-6.0); Red Cell Distribution Width 14.6 % (11.5-14.0); White Blood Count 7.3 K/mm3 (4.0-10.5)
[2021-02-09 08:09] LABS: Anion Gap 14.3 mmol/L (6.8-13.8); BUN/Creatinine Ratio 17.6 (9.0-21.6); Calcium * 7.7 mg/dL (7.9-10.9); Carbon Dioxide 24.3 mmol/L (24-32.6); Estimated Creat Clear 94.5; Potassium 3.6 mmol/L (3.4-4.6)
--- NOTE | 2021-02-09 09:41 | PN ---
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 Could move his legs very well. Now he still has some weakness and numbness on the right. Objective - Review of Systems Generalized/Overall Review: Denies: Chills, Fever EENTM: Reports: Other - Is having some drainage from his left nostril Respiratory: Denies: Cough, Shortness of Breath Cardiac: Denies: Chest Pain Abdominal: Reports: Other - He had some abdominal pain when the epidural ran out, but otherwise he states that his abdomen only feels "full" Genitourinary Symptoms: Reports: No Symptoms Reported Musculoskeletal Complaints: Reports: Other - Numbness and weakness legs Neurological: Reports: Other - Numbness and weakness legs Skin: Reports: No Symptoms Reported - Vitals Vitals: Last Vital Signs Temp 37.3 C 02/09/21 06:27 Pulse 84 02/09/21 06:27 Resp 16 02/09/21 06:27 BP 157/70 H 02/09/21 06:27 Pulse Ox 100 02/09/21 06:27 - Abnormal Lab Findings Abnormal Lab Findings: Abnormal Lab Results 02/09/21 02/09/21 Range/Units 07:25 07:25 RBC 3.78 L (4.7-6.0) M/mm3 Hgb 10.6 L (13.5-18.0) gm/dL Hct 33.0 L (42.0-52.0) % RDW 14.6 H (11.5-14.0) % Plt Count 143 L (150-450) K/mm3 Immature Gran % (Auto) 0.60 H (0.001-0.429) % Immature Gran # (Auto) 0.04 H (0.000-0.0310) K/mm3 Neutrophils % 85.0 H (42-75.0) % Lymphocytes % 7.6 L (20-51) % Neutrophils # 6.2 H (1.3-6.0) K/mm3 Lymphocytes # 0.55 L (1.5-3.5) k/mm3 Anion Gap 14.3 H (6.8-13.8) mmol/L Calcium 7.7 L (7.9-10.9) mg/dL - Exam Constitutional: Present: Alert, Oriented x3, Cooperative, No distress ENT Exam: Present: other - NG in good position Neck: Present: full range of motion, normal inspection Respiratory: Present: normal breath sounds Cardiovascular/Chest: Present: regular rate, rhythm Abdomen: Present: other - Distended, tympanic to percussion but soft /Rectal: Present: Exam deferred Extremity: Present: other - Weakness right greater than left lower extremity Skin Exam: Present: normal color, warm/dry, other - Not flushed Cauti Physician Documentation - Urinary Catheter Management Coude Urethral Indwelling: Yes Date of Insertion: 02/05/21 Time of Insertion: 15:55 Assessment/Plan Plan Narrative: His epidural catheter will come out today. We will switch to Dilaudid FORMULA BOTTLER. Hopefully he will then be able to get out of bed better. Continue nasogastric suction for now. Will DC Adam when adequately mobile. ADDENDUM 18:44 Patient has good pain control with IV FORMULA BOTTLER. Feeling and movement back to normal in legs, sat up. Packing changed, clean granulation. - Problems/Diagnosis (1) Colonic obstruction Problem: Acute
[2021-02-09] MEDS ORDERED: NALOXONE HCL 1 MG/1 ML SYRG IV PRN (09:42)
[2021-02-09] MEDS ORDERED: diphenhydrAMINE HCL 50 MG/ML VIAL IV PRN (09:42)
--- NOTE | 2021-02-09 11:33 | PN ---
Subjective - Date and Time Seen Date: 02/09/21 Time: 11:31 Subjective Narrative: Patient states pain is well controlled. Patient reports he was able to move both legs well when epidural medication ran out. He is using the CROCHET MACHINE OPERATOR epidural medication now and can move both legs with some weakness noted. Objective Objective Narrative: Thoracic epidural intact and secured to back. - Vitals Vitals: Last Vital Signs Temp 36.9 C 02/09/21 11:16 Pulse 80 02/09/21 11:16 Resp 16 02/09/21 11:16 BP 157/79 H 02/09/21 11:16 Pulse Ox 100 02/09/21 11:16 - Abnormal Lab Findings Abnormal Lab Findings: Abnormal Lab Results 02/09/21 02/09/21 Range/Units 07:25 07:25 RBC 3.78 L (4.7-6.0) M/mm3 Hgb 10.6 L (13.5-18.0) gm/dL Hct 33.0 L (42.0-52.0) % RDW 14.6 H (11.5-14.0) % Plt Count 143 L (150-450) K/mm3 Immature Gran % (Auto) 0.60 H (0.001-0.429) % Immature Gran # (Auto) 0.04 H (0.000-0.0310) K/mm3 Neutrophils % 85.0 H (42-75.0) % Lymphocytes % 7.6 L (20-51) % Neutrophils # 6.2 H (1.3-6.0) K/mm3 Lymphocytes # 0.55 L (1.5-3.5) k/mm3 Anion Gap 14.3 H (6.8-13.8) mmol/L Calcium 7.7 L (7.9-10.9) mg/dL - Exam Constitutional: Present: Alert, Oriented x3, Cooperative, No distress Extremity: Present: normal range of motion Cauti Physician Documentation - Urinary Catheter Management Coude Urethral Indwelling: Yes Date of Insertion: 02/05/21 Time of Insertion: 15:55 Assessment/Plan Plan Narrative: Okay to discontinue epidural catheter when patient is ready for transition to Dilaudid CROCHET MACHINE OPERATOR.
[2021-02-09] MEDS: PANTOPRAZOLE SODIUM 40 MG in NORMAL SALINE 100 ML IV SCH (11:50)
[2021-02-09] MEDS: HYDROmorphone HCL IN 0.9% NACL 50 ML CARTRIDGE IV PRN (13:40)
[2021-02-09] MEDS ORDERED: BISACODYL 5 MG TABLET.DR PO ONE (18:42)
[2021-02-10] MEDS: POTASSIUM CHLORIDE 20 MEQ in 0.5 NORMAL SALINE 1,000 ML IV SCH ×4 (02:07→18:53)
[2021-02-10 06:58] LABS: Anion Gap 14.6 mmol/L (6.8-13.8); BUN/Creatinine Ratio 12.3 (9.0-21.6); Calcium * 7.5 mg/dL (7.9-10.9); Carbon Dioxide 24.9 mmol/L (24-32.6); Estimated Creat Clear 98.9; Potassium 3.5 mmol/L (3.4-4.6)
--- NOTE | 2021-02-10 10:36 | PN ---
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 Pain controlled with NATIONAL SALES REPRESENTATIVE. Minimal LOTUS drain output Objective - Review of Systems Generalized/Overall Review: Denies: Fever EENTM: Reports: No Symptoms Reported Respiratory: Reports: Other - SaO2 good on room air. Denies: Cough, Shortness of Breath Cardiac: Denies: Chest Pain, Palpitations Abdominal: Reports: Other - Has had colostomy output. Sumner a gurgle Genitourinary Symptoms: Reports: No Symptoms Reported Musculoskeletal Complaints: Reports: No Symptoms Reported Neurological: Reports: Other - Weakness and numbness in the legs has resolved after removal of epidural Skin: Reports: No Symptoms Reported - Vitals Vitals: Last Vital Signs Temp 36.4 C 02/10/21 07:19 Pulse 79 02/10/21 07:19 Resp 16 02/10/21 07:19 BP 145/76 02/10/21 07:19 Pulse Ox 99 02/10/21 07:19 - Abnormal Lab Findings Abnormal Lab Findings: Abnormal Lab Results 02/10/21 Range/Units 06:28 Anion Gap 14.6 H (6.8-13.8) mmol/L Calcium 7.5 L (7.9-10.9) mg/dL - Exam Constitutional: Present: Alert, Oriented x3, Cooperative, Mild distress ENT Exam: Present: normal ENT inspection - He has shaved. NG in good position Neck: Present: normal inspection Respiratory: Present: normal breath sounds Cardiovascular/Chest: Present: regular rate, rhythm Abdomen: Present: other - Distended and tympanic. Very few bowel sounds /Rectal: Present: Exam deferred Extremity: Present: normal range of motion, non-tender, no pedal edema, no calf tenderness Skin Exam: Present: normal color Neurologic: Present: software development leader II-XII nml as tested, no motor/sensory deficits Appearance: Present: appropriate appearance, appropriate insight, neat, no memory impairment Eye contact: Present: cooperative, good eye contact, normal speech Thoughts: Present: normal thought pattern Cauti Physician Documentation - Urinary Catheter Management Coude Urethral Indwelling: Yes Date of Insertion: 02/05/21 Time of Insertion: 15:55 Assessment/Plan Plan Narrative: Will encourage out of bed and ambulation today. Plan to remove LOTUS drain and repacked wound later today. Will remove Adam We will plan to have patient seen by the wound care center tomorrow regarding a wound VAC Addendum 5 PM: LOTUS removed, coughs well with splinting. Wound repacked. - Problems/Diagnosis (1) Colonic obstruction Problem: Acute
[2021-02-10] MEDS: PANTOPRAZOLE SODIUM 40 MG in NORMAL SALINE 100 ML IV SCH (11:05)
[2021-02-11] MEDS: POTASSIUM CHLORIDE 20 MEQ in 0.5 NORMAL SALINE 1,000 ML IV SCH ×5 (00:39→18:19)
[2021-02-11] MEDS: PANTOPRAZOLE SODIUM 40 MG in NORMAL SALINE 100 ML IV SCH ×2 (08:31→10:15)
[2021-02-11] MEDS: PIPERACILLIN SODIUM/TAZOBACTAM 3.375 GM in DEXTROSE 5 % IN WATER 100 ML IV SCH ×4 (08:59→15:58)
[2021-02-11] MEDS: HYDROmorphone HCL IN 0.9% NACL 50 ML CARTRIDGE IV PRN (13:09)
--- NOTE | 2021-02-11 16:57 | PN ---
Subjective - Date and Time Seen Date: 02/11/21 Time: 16:53 Subjective Narrative: POD #5 left colon resection with Jaizel procedure for obstructing adenocarcinoma of the colon Vital signs normal He has been out of the bed in a chair most of the day. He did ambulate some. Minimal bowel activity. Adam out Objective - Review of Systems Generalized/Overall Review: Denies: Chills, Fever EENTM: Reports: No Symptoms Reported Respiratory: Reports: Other - He is breathing better sitting up not coughing as much Cardiac: Denies: Chest Pain, Palpitations Abdominal: Reports: Other - The SEMICONDUCTOR WAFERS ETCHER STRIPPER is controlling his discomfort Genitourinary Symptoms: Reports: Other - Adam is out. Has not urinated yet independently Musculoskeletal Complaints: Reports: No Symptoms Reported Neurological: Reports: No Symptoms Reported Skin: Reports: No Symptoms Reported - Vitals Vitals: Last Vital Signs Temp 36.3 C 02/11/21 14:32 Pulse 87 02/11/21 14:32 Resp 18 02/11/21 14:32 BP 130/93 H 02/11/21 14:32 Pulse Ox 100 02/11/21 14:32 - Exam Constitutional: Present: Alert, Oriented x3, Cooperative, No distress ENT Exam: Present: normal ENT inspection, other - NG in good position. Not flushed Neck: Present: supple, normal inspection Respiratory: Present: no respiratory distress Cardiovascular/Chest: Present: regular rate, rhythm Abdomen: Present: other - Distended and tympanic. The wound is clean granulation with some shaggy exudate in the base. LOTUS drain site is healed shut. The colostomy is dusky superficially but there is some pink mucosa on the interior /Rectal: Present: Exam deferred Extremity: Present: normal range of motion, no calf tenderness, other - He has some edema of the thighs Skin Exam: Present: normal color Neurologic: Present: vp marketing II-XII nml as tested, no motor/sensory deficits Appearance: Present: appropriate appearance, no memory impairment Eye contact: Present: cooperative, good eye contact, normal speech Thoughts: Present: normal thought pattern Cauti Physician Documentation - Urinary Catheter Management Coude Urethral Indwelling: Yes Date of Insertion: 02/05/21 Time of Insertion: 15:55 Date of Removal: 02/11/21 Time of Removal: 13:40 Assessment/Plan Plan Narrative: Will encourage ambulation and out of bed. Stress pulmonary toilet. The wound was repacked with 1 inch iodoform gauze and new Mepilex border/Medipore tape. Small Mepilex border to LOTUS drain site. His antibiotics had been discontinued--- will restart Zosyn Await pathology Continue IV fluids and NG suction for now - Problems/Diagnosis (1) Colonic obstruction Problem: Acute
[2021-02-12] MEDS: POTASSIUM CHLORIDE 20 MEQ in 0.5 NORMAL SALINE 1,000 ML IV SCH ×3 (00:08→21:03)
[2021-02-12] MEDS: PIPERACILLIN SODIUM/TAZOBACTAM 3.375 GM in DEXTROSE 5 % IN WATER 100 ML IV SCH ×8 (00:11→23:21)
[2021-02-12 08:14] LABS: Anion Gap 12.9 mmol/L (6.8-13.8); BUN/Creatinine Ratio 12.5 (9.0-21.6); Calcium * 7.9 mg/dL (7.9-10.9); Carbon Dioxide 26.7 mmol/L (24-32.6); Estimated Creat Clear 114.8; Potassium 3.6 mmol/L (3.4-4.6)
[2021-02-12] MEDS: PANTOPRAZOLE SODIUM 40 MG in NORMAL SALINE 100 ML IV SCH (11:40)
--- NOTE | 2021-02-12 13:30 | CONS ---
[facility] - General Date of Service: 02/12/21 Source: patient - History of Present Illness Initial Comments: Patient is a 70 year old male, admitted to the hospital on 02/04/2021, regarding a bowel obstruction. It was determined to be an obstructing adenocarcinoma. The patient underwent surgical colon resection, and has a colostomy in place. The large abdominal wound is currently packed with gauze packing, and changed daily. The patient states that the dressing changes are uncomfortable, however he has minimal pain at the current time. He has no significant medical history. He denies prior non-healing wounds. Allergies/Adverse Reactions: Allergies No Known Allergies Allergy (Verified 02/04/21 17:56) Home Medications: Home Medications Medication Instructions Recorded Last Taken multivitamin 1 tab PO DAILY 02/04/21 Unknown Procedures Application of splint (08/07/05) Medications - Medications Current Medications: Current Medications Hydromorphone/Sodium Chloride (Hydromorphone Hcl In 0.9% Nacl 50 Ml Cartridge) 0 ml IV PRN PRN; Protocol PRN Reason: Pain Stop: 03/11/21 09:43 Last Admin: 02/11/21 13:09 Dose: 50 ml Documented by: Potassium Chloride 20 meq/ (Sodium Chloride) 1,010 mls @ 85 mls/hr IV .[id number] [facility] Stop: 03/09/21 09:16 Last Admin: 02/12/21 09:14 Dose: 85 mls/hr Documented by: Pantoprazole Sodium 40 mg/ (Sodium Chloride) 100 mls @ 400 mls/hr IV Q24H [facility] Stop: 03/09/21 10:01 Last Infusion: 02/12/21 11:55 Dose: Infused Documented by: Acetaminophen (Ofirmev) 1,000 mg in 100 mls @ 400 mls/hr IV Q6H PRN PRN Reason: Pain Stop: 03/09/21 12:19 Last Infusion: 02/08/21 19:33 Dose: Infused Documented by: Piperacillin Sod/Tazobactam (Sod 3.375 gm/ Dextrose/Water) 100 mls @ 25 mls/hr IV Q8H [facility]; Protocol Stop: 03/13/21 08:01 Last Infusion: 02/12/21 11:40 Dose: Infused Documented by: Review of Systems - Review of Systems Generalized/Overall Review: Absent: Chills, Fever EENTM: Absent: Nose Congestion Respiratory: Absent: Cough, Shortness of Breath Cardiac: Absent: Chest Pain, Edema Abdominal: Present: Abdominal Pain - mild Neurological: Absent: Headache Skin: Present: Lesions Physical Examination - Exam Vital Signs: Vital Signs - Last Taken Temp 36.3 C 02/12/21 10:32 Pulse 82 02/12/21 10:32 Resp 16 02/12/21 10:32 BP 134/60 02/12/21 10:32 Pulse Ox 99 02/12/21 10:32 O2 Oxygen Delivery Method Room Air Constitutional: Present: Alert, Oriented x3, No distress ENT Exam: Present: hearing grossly normal Respiratory: Present: no respiratory distress Abdomen: Present: soft, no rebound tenderness, other - wound measures 15.0 x 6.5 x 2.0cm. moderate amount of serous drainage. large amount of red granulation tissue. no erythema or induration., distended Extremity: Present: no pedal edema Skin Exam: Present: warm/dry Appearance: Present: appropriate insight Eye contact: Present: cooperative, normal speech Thoughts: Present: normal thought pattern - Results and Findings: Lab/Microbiology results last 24 hrs: Abnormal/Pending Laboratory Last 24 HRS 02/12/21 07:45 Chloride 96 L Est GFR (Non-Af Amer) 153 H - Assessments/Findings (1) Colonic obstruction Diagnosis(s): The surgical wound would benefit from a Wound Vac to facilitate healing. Recommend starting this therapy as an inpatient, as the patient will be here several days due to antibiotic therapy. We would be happy to follow the patient for continued Vac therapy as an out-patient as well. Problem: Acute
[2021-02-12] MEDS ORDERED: FUROSEMIDE 10 MG/ML VIAL IV ONE (15:28)
--- NOTE | 2021-02-12 16:33 | PN ---
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 Has urinated without the Adam. He was seen by JUAN FRANCISCO Espinoza and a wound VAC has been ordered for tomorrow. Objective - Review of Systems Generalized/Overall Review: Denies: Chills, Fever EENTM: Reports: No Symptoms Reported Respiratory: Reports: No Symptoms Reported, Other - Using incentive spirometer and Jessica well.. Denies: Shortness of Breath Cardiac: Denies: Chest Pain, Palpitations Abdominal: Reports: Other - The midline dressing has had to be reinforced due to drainage. Minimal colostomy output Genitourinary Symptoms: Reports: No Symptoms Reported Musculoskeletal Complaints: Reports: No Symptoms Reported Neurological: Reports: No Symptoms Reported Skin: Reports: No Symptoms Reported - Vitals Vitals: Last Vital Signs Temp 36.3 C 02/12/21 16:20 Pulse 76 02/12/21 16:20 Resp 12 02/12/21 16:20 BP 104/58 02/12/21 16:20 Pulse Ox 98 02/12/21 16:20 - Abnormal Lab Findings Abnormal Lab Findings: Abnormal Lab Results 02/12/21 Range/Units 07:45 Chloride 96 L (97-106) mmol/L Est GFR (Non-Af Amer) 153 H (60-130) mL/min - Exam Constitutional: Present: Alert, Oriented x3, Cooperative, Well nourished, No distress ENT Exam: Present: normal ENT inspection, other - NG in good position Neck: Present: full range of motion, normal inspection Respiratory: Present: normal breath sounds Cardiovascular/Chest: Present: regular rate, rhythm Abdomen: Present: other - Slightly less distended today but still very tympanic. The midline incision has superficial granulation although the deeper fascia appears somewhat shaggy. The colostomy is widely patent however the superficial mucosa is dusky. LOTSU drain site healed /Rectal: Present: External genitalia normal Extremity: Present: normal range of motion, no calf tenderness, other - Less edema of the thighs today Skin Exam: Present: warm/dry Neurologic: Present: side door man II-XII nml as tested, normal cerebellar test, no motor/sensory deficits Appearance: Present: appropriate appearance, appropriate insight, no memory impairment Eye contact: Present: cooperative, good eye contact, normal speech Thoughts: Present: normal thought pattern Cauti Physician Documentation - Urinary Catheter Management Coude Urethral Indwelling: Yes Date of Insertion: 02/05/21 Time of Insertion: 15:55 Date of Removal: 02/11/21 Time of Removal: 13:40 Assessment/Plan Plan Narrative: The midline incision was nonselectively debrided with gauze and repacked with 2 inch iodoform. Mepilex border Medipore tape cover. Small Mepilex border to the LOTUS drain site. We will administer small dose of IV Lasix. Continue nasogastric suction. Wound VAC tomorrow. May need TPN - Problems/Diagnosis (1) Colonic obstruction Problem: Acute
[2021-02-13] MEDS: PIPERACILLIN SODIUM/TAZOBACTAM 3.375 GM in DEXTROSE 5 % IN WATER 100 ML IV SCH ×8 (07:54→23:12)
[2021-02-13] MEDS: POTASSIUM CHLORIDE 20 MEQ in 0.5 NORMAL SALINE 1,000 ML IV SCH ×2 (08:02→20:08)
[2021-02-13] MEDS: PANTOPRAZOLE SODIUM 40 MG in NORMAL SALINE 100 ML IV SCH (09:08)
[2021-02-13] MEDS: HYDROmorphone HCL IN 0.9% NACL 50 ML CARTRIDGE IV PRN (19:49)
--- NOTE | 2021-02-13 20:12 | PN ---
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 He has ambulated a long distance in the warner twice. The wound VAC was placed earlier today.. Objective - Review of Systems Generalized/Overall Review: Reports: Fatigue. Denies: Chills, Fever EENTM: Reports: No Symptoms Reported Respiratory: Denies: Cough, Shortness of Breath Cardiac: Denies: Chest Pain, Palpitations Abdominal: Reports: Other - His abdomen feels less distended. He may feel a little hungry Genitourinary Symptoms: Reports: Other - Voiding without the Adam Musculoskeletal Complaints: Reports: No Symptoms Reported Neurological: Reports: No Symptoms Reported Skin: Reports: No Symptoms Reported - Vitals Vitals: Last Vital Signs Temp 36.9 C 02/13/21 19:00 Pulse 79 02/13/21 19:00 Resp 18 02/13/21 19:00 BP 128/56 02/13/21 19:00 Pulse Ox 100 02/13/21 19:00 - Exam Constitutional: Present: Alert, Oriented x3, Cooperative, Mild distress ENT Exam: Present: normal ENT inspection, other - NG in good position Neck: Present: normal inspection Respiratory: Present: normal breath sounds Cardiovascular/Chest: Present: regular rate, rhythm Abdomen: Present: other - Cassia descended, but less so. Soft. Very tympanic. Colostomy mucosa is dusky. Wound VAC intact /Rectal: Present: Exam deferred Extremity: Present: normal range of motion, no calf tenderness, other - Left thigh edema Skin Exam: Present: normal color, warm/dry Neurologic: Present: outside machinist II-XII nml as tested, normal cerebellar test, no motor/sensory deficits Appearance: Present: appropriate appearance, appropriate insight, no memory impairment Eye contact: Present: cooperative, good eye contact, normal speech Thoughts: Present: normal thought pattern Cauti Physician Documentation - Urinary Catheter Management Coude Urethral Indwelling: Yes Date of Insertion: 02/05/21 Time of Insertion: 15:55 Date of Removal: 02/11/21 Time of Removal: 13:40 Assessment/Plan Plan Narrative: The pathology report on the resected specimen was returned today. There were no lymph nodes involved however the tumor had invaded the musculature of the abdominal wall on the separate submitted specimen. Relayed this to the patient. Will need to start TPN tomorrow. Continue antibiotics. Encourage out of bed and pulmonary toilet. Continue wound VAC - Problems/Diagnosis (1) Colonic obstruction Problem: Acute
[2021-02-14 06:56] LABS: Hematocrit 30.7 % (42.0-52.0); Hemoglobin 10.1 gm/dL (13.5-18.0); Mean Cell Volume 85.5 fl (78-100); Mean Corpuscular Hemoglobin 28.1 pg (27-31); Mean Corpuscular Hgb Conc 32.9 g/dl (32-36); Mean Platelet Volume 9.8 fl (8-11.3); Neutrophil # 4.5 K/mm3 (1.3-6.0); Neutrophil % 77.3 % (42-75.0); Platelet Count 257 K/mm3 (150-450); Red Blood Count 3.59 M/mm3 (4.7-6.0); Red Cell Distribution Width 14.8 % (11.5-14.0); White Blood Count 5.9 K/mm3 (4.0-10.5)
[2021-02-14] MEDS: POTASSIUM CHLORIDE 20 MEQ in 0.5 NORMAL SALINE 1,000 ML IV SCH ×2 (07:10→19:02)
[2021-02-14 07:21] LABS: Albumin * 1.8 gm/dl (3.4-5.0); BUN/Creatinine Ratio 7.7 (9.0-21.6); Bilirubin, Total 0.6 mg/dL (0.0-1.1); Ca. Corrected For Albumin 9.2 mg/dL (8.4-10.2); Calcium * 7.8 mg/dL (7.9-10.9); Carbon Dioxide 28.4 mmol/L (24-32.6); Potassium 3.4 mmol/L (3.4-4.6); Total Protein 5.5 gm/dL (6.2-8.2)
[2021-02-14] MEDS: PIPERACILLIN SODIUM/TAZOBACTAM 3.375 GM in DEXTROSE 5 % IN WATER 100 ML IV SCH ×6 (07:24→23:56)
[2021-02-14 10:09] LABS: Magnesium 1.8 mg/dL (1.2-2.8); Phosphorus 3.7 mg/dL (2.2-4.2)
[2021-02-14] MEDS: PANTOPRAZOLE SODIUM 40 MG in NORMAL SALINE 100 ML IV SCH ×2 (11:44→14:16)
--- NOTE | 2021-02-14 14:26 | ANES ---
Anesthesia Procedure Note Procedure Note: ANESTHESIA PROCEDURE NOTE Date of procedure: 02/14/2021. Time of procedure: 1300. Performed by: Ruddy Carmona CRNA Displayer: None . Preprocedure diagnosis: Status post colon resection. Need for central venous access for IV parenteral nutrition. Post procedure diagnosis: Same. Procedure: Attempted PICC line placement Indications: Need for central venous access. Findings: Ultrasound utilized in an attempt to obtain right antecubital venous access. Attempted access of a small antecubital vein was unsuccessful. Ultrasound utilized in an attempt attempt visualize the right basilic vein. This was also unsuccessful. Patient's left arm is swollen and edematous. No attempts were made in patient's left arm. A 22 gauge Angiocath IV started in patient's right wrist. Will notify Dr. Snyder of failed attempt. EBL: Minimal. Fluids: N/A. Specimen: N/A. Post procedure condition: The patient tolerated the procedure well. No complications were noted. Thank you for this consultation Ruddy Carmona CRNA
[2021-02-14] MEDS ORDERED: BISACODYL 5 MG TABLET.DR PO ONE (16:56)
--- NOTE | 2021-02-14 17:03 | PN ---
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 He has ambulated. The wound VAC is working well. He tolerated NG clamping, can feel growling and had soft stool from colostomy. He had some discomfort in the sacrum which is better with donut Objective - Review of Systems Generalized/Overall Review: Denies: Chills, Fever EENTM: Reports: No Symptoms Reported Respiratory: Denies: Cough, Shortness of Breath Cardiac: Denies: Chest Pain, Palpitations Abdominal: Reports: Other - tolerated NG tube clamping Genitourinary Symptoms: Reports: No Symptoms Reported Musculoskeletal Complaints: Reports: No Symptoms Reported Neurological: Reports: No Symptoms Reported Skin: Reports: No Symptoms Reported Endocrine: Reports: No Symptoms Reported - Vitals Vitals: Last Vital Signs Temp 36.4 C 02/14/21 14:03 Pulse 70 02/14/21 14:03 Resp 18 02/14/21 14:03 BP 129/63 02/14/21 14:03 Pulse Ox 98 02/14/21 14:03 - Abnormal Lab Findings Abnormal Lab Findings: Abnormal Lab Results 02/14/21 02/14/21 Range/Units 06:30 06:30 RBC 3.59 L (4.7-6.0) M/mm3 Hgb 10.1 L (13.5-18.0) gm/dL Hct 30.7 L (42.0-52.0) % RDW 14.8 H (11.5-14.0) % Immature Gran % (Auto) 0.70 H (0.001-0.429) % Immature Gran # (Auto) 0.04 H (0.000-0.0310) K/mm3 Neutrophils % 77.3 H (42-75.0) % Lymphocytes % 12.1 L (20-51) % Lymphocytes # 0.71 L (1.5-3.5) k/mm3 BUN 5 L (6-23) mg/dL BUN/Creatinine Ratio 7.7 L (9.0-21.6) Calcium 7.8 L (7.9-10.9) mg/dL Total Protein 5.5 L (6.2-8.2) gm/dL Albumin 1.8 L (3.4-5.0) gm/dl - Exam Constitutional: Present: Alert, Oriented x3, Cooperative, No distress ENT Exam: Present: normal ENT inspection Neck: Present: normal inspection Respiratory: Present: no respiratory distress Cardiovascular/Chest: Present: regular rate, rhythm Abdomen: Present: other - distended but soft. +BS wound vac intact /Rectal: Present: Exam deferred Extremity: Present: normal range of motion, no calf tenderness Skin Exam: Present: normal color, warm/dry Neurologic: Present: cutting supervisor II-XII nml as tested, no motor/sensory deficits Appearance: Present: appropriate appearance, appropriate insight, neat, no memory impairment Eye contact: Present: cooperative, good eye contact, normal speech Thoughts: Present: normal thought pattern Cauti Physician Documentation - Urinary Catheter Management Coude Urethral Indwelling: Yes Date of Insertion: 02/05/21 Time of Insertion: 15:55 Date of Removal: 02/11/21 Time of Removal: 13:40 Assessment/Plan Plan Narrative: Could not obtain a PIC line in right arm, left arm edematous. Had considered TPN, however that will require a subclavian catheter. He had evidence of return of bowel function, so will trial po intake prior to starting TPN. - Problems/Diagnosis (1) Colonic obstruction Problem: Acute
[2021-02-14] MEDS: FAT EMULSIONS 50 G in Premix Bag 1 BAG IV SCH (17:15)
[2021-02-14] MEDS: INSULIN LISPRO 100 UNITS/ML VIAL SC SCH ×2 (17:16→17:17)
[2021-02-15] MEDS: ONDANSETRON HCL/PF 2 MG/ML VIAL IV PRN (06:50)
[2021-02-15] MEDS: POTASSIUM CHLORIDE 20 MEQ in 0.5 NORMAL SALINE 1,000 ML IV SCH (06:57)
[2021-02-15 07:40] LABS: Albumin * 1.8 gm/dl (3.4-5.0); Anion Gap 11.3 mmol/L (6.8-13.8); BUN/Creatinine Ratio 4.8 (9.0-21.6); Bilirubin, Total 0.6 mg/dL (0.0-1.1); Ca. Corrected For Albumin 9.3 mg/dL (8.4-10.2); Calcium * 7.9 mg/dL (7.9-10.9); Carbon Dioxide 29.2 mmol/L (24-32.6); Magnesium 1.8 mg/dL (1.2-2.8); Phosphorus 3.2 mg/dL (2.2-4.2); Potassium 3.5 mmol/L (3.4-4.6); Total Protein 5.9 gm/dL (6.2-8.2)
[2021-02-15] MEDS: PIPERACILLIN SODIUM/TAZOBACTAM 3.375 GM in DEXTROSE 5 % IN WATER 100 ML IV SCH ×6 (09:34→23:56)
--- NOTE | 2021-02-15 10:33 | OR ---
Operative Report - Dictated Report Narrative: OPERATIVE REPORT DATE OF OPERATION: 02/15/2021 PREOPERATIVE DIAGNOSIS: Need for central venous access for TPN POSTOPERATIVE DIAGNOSIS: Same OPERATION: Insertion of right subclavian catheter SURGEON: Princess Snyder MD ANESTHESIA: Local INDICATIONS FOR PROCEDURE: The patient is a 70-year-old male who underwent a left colon resection with Jaziel procedure for an obstructing adenocarcinoma of the colon. He is still requiring nasogastric suction and central venous access is needed for TPN FINDINGS: Successful placement of the catheter NARRATIVE OF PROCEDURE: With the patient in the supine position with a rolled towel between the shoulders, the right clavicular area was prepped and draped in a sterile fashion. The skin subcutaneous tissue and periosteum of the clavicle were anesthetized with 1% Xylocaine. The right subclavian vein was accessed, a guidewire was placed followed by a vein dilator. A triple-lumen catheter was then placed in the vein with 15 cm visible at the skin surface. The catheter was secured to the skin with 3-0 silk sutures and sterilely dressed. The catheter aspirated and flushed easily. The operative procedure was terminated at this point. The patient tolerated the procedure well without complication. A chest x-ray demonstrates good position of the tube with no pneumothorax. Reviewed and electronically signed
[2021-02-15] MEDS: PANTOPRAZOLE SODIUM 40 MG in NORMAL SALINE 100 ML IV SCH (11:23)
[2021-02-15] MEDS: FAT EMULSIONS IV SCH (11:53)
[2021-02-15] MEDS: MULTIVIT INFUSN ADULT K IV SCH ×4 (11:56)
[2021-02-15] MEDS: [UNRECOGNIZED DRUG - OTHER] IV SCH ×4 (11:56)
[2021-02-15] MEDS: POTASSIUM PHOS M BASIC D BASIC IV SCH ×4 (11:56)
[2021-02-15] MEDS: FAT EMULSIONS 50 G in Premix Bag 1 BAG IV SCH (12:10)
[2021-02-15] MEDS: INSULIN LISPRO 100 UNITS/ML VIAL SC SCH ×3 (12:18→20:10)
[2021-02-15] MEDS: oxyCODONE HCL/ACETAMINOPHEN 1 TAB TABLET PO PRN (16:39)
--- NOTE | 2021-02-15 17:47 | PN ---
Subjective - Date and Time Seen Date: 02/15/21 Time: 17:44 Subjective Narrative: POD #9 left colon resection with Jaziel procedure for obstructing adenocarcinoma of the colon Vital signs normal He did not tolerate NG tube clamping. A right subclavian catheter was started today and TPN started. He did ambulate long distances twice today. The wound VAC was changed Objective - Review of Systems Generalized/Overall Review: Reports: Fatigue EENTM: Reports: No Symptoms Reported Respiratory: Denies: Cough, Shortness of Breath Cardiac: Denies: Chest Pain, Palpitations Abdominal: Reports: Other - He has not is comfortable without the SUBSTATION TECHNICIAN Genitourinary Symptoms: Reports: No Symptoms Reported Musculoskeletal Complaints: Reports: Other - He has some pain in his shoulder. The sacral pain is better Neurological: Reports: No Symptoms Reported Skin: Reports: No Symptoms Reported - Vitals Vitals: Last Vital Signs Temp 36.6 C 02/15/21 14:24 Pulse 76 02/15/21 14:24 Resp 20 02/15/21 14:24 BP 147/71 02/15/21 14:24 Pulse Ox 94 02/15/21 14:24 - Abnormal Lab Findings Abnormal Lab Findings: Abnormal Lab Results 02/15/21 Range/Units 06:26 BUN 3 L (6-23) mg/dL Est GFR (Non-Af Amer) 136 H (60-130) mL/min BUN/Creatinine Ratio 4.8 L (9.0-21.6) Total Protein 5.9 L (6.2-8.2) gm/dL Albumin 1.8 L (3.4-5.0) gm/dl - Exam Constitutional: Present: Alert, Oriented x3, Cooperative, Mild distress ENT Exam: Present: normal ENT inspection Neck: Present: normal inspection Respiratory: Present: normal breath sounds Cardiovascular/Chest: Present: regular rate, rhythm Abdomen: Present: other - Distended and tympanic. LOTUS site healed. No wound VAC dressing. Colostomy dusky, minimal output /Rectal: Present: Exam deferred Extremity: Present: normal range of motion, no calf tenderness Skin Exam: Present: normal color Neurologic: Present: actuarial manager II-XII nml as tested, no motor/sensory deficits Appearance: Present: appropriate appearance, appropriate insight, no memory impairment Eye contact: Present: cooperative, good eye contact, normal speech Thoughts: Present: normal thought pattern Cauti Physician Documentation - Urinary Catheter Management Coude Urethral Indwelling: Yes Date of Insertion: 02/05/21 Time of Insertion: 15:55 Date of Removal: 02/11/21 Time of Removal: 13:40 Assessment/Plan Plan Narrative: Started TPN today. Will add IV Dilaudid on a as needed basis. Continue NG suction. Encourage pulmonary toilet and ambulation - Problems/Diagnosis (1) Colonic obstruction Problem: Acute
[2021-02-15] MEDS: HYDROmorphone HCL 1 MG/ML DISP.SYRIN IV PRN (17:59)
[2021-02-16] MEDS: INSULIN LISPRO 100 UNITS/ML VIAL SC SCH ×7 (00:01→23:54)
[2021-02-16] MEDS: HYDROmorphone HCL 1 MG/ML DISP.SYRIN IV PRN ×2 (00:25→23:58)
[2021-02-16] MEDS: oxyCODONE HCL/ACETAMINOPHEN 1 TAB TABLET PO PRN ×2 (06:42→11:05)
[2021-02-16 07:36] LABS: Albumin * 1.8 gm/dl (3.4-5.0); Anion Gap 9.3 mmol/L (6.8-13.8); BUN/Creatinine Ratio 9.7 (9.0-21.6); Bilirubin, Total 0.6 mg/dL (0.0-1.1); Ca. Corrected For Albumin 9.2 mg/dL (8.4-10.2); Calcium * 7.8 mg/dL (7.9-10.9); Carbon Dioxide 33.8 mmol/L (24-32.6); Magnesium 1.8 mg/dL (1.2-2.8); Phosphorus 3.1 mg/dL (2.2-4.2); Potassium 3.1 mmol/L (3.4-4.6); Total Protein 5.6 gm/dL (6.2-8.2)
[2021-02-16] MEDS: PIPERACILLIN SODIUM/TAZOBACTAM 3.375 GM in DEXTROSE 5 % IN WATER 100 ML IV SCH ×4 (08:12→15:11)
[2021-02-16] MEDS: PANTOPRAZOLE SODIUM 40 MG in NORMAL SALINE 100 ML IV SCH (09:27)
--- NOTE | 2021-02-16 10:27 | PN ---
Subjective - Date and Time Seen Date: 02/16/21 Time: 10:21 Subjective Narrative: POD #10 left colon resection with Jaziel procedure for obstructing adenocarcinoma of the colon Vital signs normal He was able to sleep some last night. His pain is controlled with IV Dilaudid and he wants to try the Percocet today. He had some discomfort in his shoulders when he woke up but the topical treatment helped. He has ambulated a long distance in the warner already and wants to do more. He has felt some bowel activity. Potassium this morning was 3.1 Objective - Review of Systems Generalized/Overall Review: Denies: Chills, Fever EENTM: Reports: No Symptoms Reported Respiratory: Denies: Cough, Shortness of Breath Cardiac: Denies: Chest Pain, Palpitations Abdominal: Reports: Other - He has felt some growling Genitourinary Symptoms: Reports: No Symptoms Reported Musculoskeletal Complaints: Reports: Other - Some shoulder discomfort this morning better now. The doughnut works for his buttocks Neurological: Reports: No Symptoms Reported Skin: Reports: No Symptoms Reported Endocrine: Reports: No Symptoms Reported - Vitals Vitals: Last Vital Signs Temp 36.5 C 02/16/21 06:48 Pulse 70 02/16/21 06:48 Resp 18 02/16/21 06:48 BP 130/58 02/16/21 06:48 Pulse Ox 94 02/16/21 06:48 - Abnormal Lab Findings Abnormal Lab Findings: Abnormal Lab Results 02/16/21 Range/Units 07:00 Potassium 3.1 L (3.4-4.6) mmol/L Carbon Dioxide 33.8 H (24-32.6) mmol/L Est GFR (Non-Af Amer) 136 H (60-130) mL/min Random Glucose 118 H (70-110) mg/dL Calcium 7.8 L (7.9-10.9) mg/dL Total Protein 5.6 L (6.2-8.2) gm/dL Albumin 1.8 L (3.4-5.0) gm/dl - Exam Constitutional: Present: Alert, Oriented x3, Cooperative, No distress ENT Exam: Present: normal ENT inspection, other - NG good position. He has his dentures in today Neck: Present: full range of motion, normal inspection Respiratory: Present: normal breath sounds Cardiovascular/Chest: Present: regular rate, rhythm Abdomen: Present: other - Is still distended and tympanic however there are cavernous bowel sounds today. Colostomy is dusky but did admit the examining finger previously /Rectal: Present: Other - There is no presacral skin breakdown or erythema Extremity: Present: normal range of motion, normal inspection, no pedal edema, no calf tenderness Skin Exam: Present: normal color, warm/dry Neurologic: Present: care transition coordinator II-XII nml as tested, no motor/sensory deficits Appearance: Present: appropriate appearance, appropriate insight, neat, no memory impairment Eye contact: Present: cooperative, good eye contact, normal speech Thoughts: Present: normal thought pattern Cauti Physician Documentation - Urinary Catheter Management Coude Urethral Indwelling: Yes Date of Insertion: 02/05/21 Time of Insertion: 15:55 Date of Removal: 02/11/21 Time of Removal: 13:40 Assessment/Plan Plan Narrative: He still has had not had return of bowel function. Whether this is due to the ischemia at the colostomy stoma, and mechanical problem with the colostomy (it does admit a finger and did function at the end of the case), or a small bowel obstruction due to kinking or ileus remains unclear. He does have bowel sounds today. The TPN solution will be adjusted to address the low potassium and the rate will be increased towards target. Will encourage ambulation. - Problems/Diagnosis (1) Colonic obstruction Problem: Acute
[2021-02-16] MEDS: MULTIVIT INFUSN ADULT K IV SCH ×9 (12:01→12:03)
[2021-02-16] MEDS: POTASSIUM PHOS M BASIC D BASIC IV SCH ×9 (12:01→12:03)
[2021-02-16] MEDS: [UNRECOGNIZED DRUG - OTHER] IV SCH ×5 (12:01)
[2021-02-16] MEDS: [UNRECOGNIZED DRUG - OTHER] IV SCH ×4 (12:03)
[2021-02-16] MEDS ORDERED: INSULIN LISPRO 100 UNITS/ML VIAL SC SCH (14:00)
[2021-02-17] MEDS: PIPERACILLIN SODIUM/TAZOBACTAM 3.375 GM in DEXTROSE 5 % IN WATER 100 ML IV SCH ×8 (00:04→23:24)
[2021-02-17] MEDS: oxyCODONE HCL/ACETAMINOPHEN 1 TAB TABLET PO PRN (06:36)
[2021-02-17] MEDS: INSULIN LISPRO 100 UNITS/ML VIAL SC SCH ×3 (06:43→17:51)
[2021-02-17 07:13] LABS: Albumin * 1.8 gm/dl (3.4-5.0); Anion Gap 8.1 mmol/L (6.8-13.8); BUN/Creatinine Ratio 14.3 (9.0-21.6); Bilirubin, Total 0.4 mg/dL (0.0-1.1); Ca. Corrected For Albumin 9.2 mg/dL (8.4-10.2); Calcium * 7.8 mg/dL (7.9-10.9); Carbon Dioxide 33.1 mmol/L (24-32.6); Magnesium 1.7 mg/dL (1.2-2.8); Phosphorus 3.6 mg/dL (2.2-4.2); Potassium 3.2 mmol/L (3.4-4.6); Total Protein 5.8 gm/dL (6.2-8.2)
[2021-02-17] MEDS ORDERED: DIATRIZOATE MEGLUMINE, SODIUM 30 ML BTL PO ONE (10:51)
--- NOTE | 2021-02-17 11:25 | PN ---
Subjective - Date and Time Seen Date: 02/17/21 Time: 11:22 Subjective Narrative: POD #11 left colon resection with Jaziel procedure for obstructing adenocarcinoma of the colon Vital signs normal Slept well. His pain is controlled with the Percocet today. Up in a chair taking a bath. He has felt some bowel activity, but still no colostomy output and NG output still significant. Potassium this morning was 3.2 Objective - Review of Systems Generalized/Overall Review: Denies: Chills, Fever EENTM: Reports: No Symptoms Reported Respiratory: Denies: Cough, Shortness of Breath Cardiac: Denies: Chest Pain, Palpitations Abdominal: Reports: Other - No problems with the wound VAC. No colostomy out put. Minimal discomfort Genitourinary Symptoms: Reports: No Symptoms Reported Musculoskeletal Complaints: Reports: Other - Some pain in a blister on the posterior thigh Neurological: Reports: No Symptoms Reported Skin: Reports: Other - Blister posterior thigh - Vitals Vitals: Last Vital Signs Temp 36.7 C 02/17/21 06:45 Pulse 68 02/17/21 06:45 Resp 16 02/17/21 06:45 BP 143/63 02/17/21 06:45 Pulse Ox 95 02/17/21 06:45 - Abnormal Lab Findings Abnormal Lab Findings: Abnormal Lab Results 02/17/21 Range/Units 06:55 Potassium 3.2 L (3.4-4.6) mmol/L Carbon Dioxide 33.1 H (24-32.6) mmol/L Est GFR (Non-Af Amer) 134 H (60-130) mL/min Calcium 7.8 L (7.9-10.9) mg/dL Total Protein 5.8 L (6.2-8.2) gm/dL Albumin 1.8 L (3.4-5.0) gm/dl - Exam Constitutional: Present: Alert, Oriented x3, Cooperative, No distress ENT Exam: Present: normal ENT inspection Neck: Present: normal inspection Respiratory: Present: no respiratory distress Cardiovascular/Chest: Present: regular rate, rhythm Abdomen: Present: other - Distended. No colostomy output. Wound VAC in place /Rectal: Present: Exam deferred Extremity: Present: normal range of motion, normal inspection Skin Exam: Present: normal color, warm/dry Neurologic: Present: crematory attendant II-XII nml as tested, no motor/sensory deficits Appearance: Present: appropriate appearance, appropriate insight, neat, no memory impairment Eye contact: Present: cooperative, good eye contact, normal speech Thoughts: Present: normal thought pattern Cauti Physician Documentation - Urinary Catheter Management Coude Urethral Indwelling: Yes Date of Insertion: 02/05/21 Time of Insertion: 15:55 Date of Removal: 02/11/21 Time of Removal: 13:40 Assessment/Plan Plan Narrative: Will administer Gastrografin challenge via NG with x-ray at 1400. Encourage ambulation ADDENDUM: He tolerated NG clamping, and abdomen is soft with active BS< Abdominal xray still has dilated loops of small bowel, however less distention. Impression ileus vs partial SBO Will leave NG clamped for now. - Problems/Diagnosis (1) Colonic obstruction Problem: Acute
[2021-02-17] MEDS: PANTOPRAZOLE SODIUM 40 MG in NORMAL SALINE 100 ML IV SCH (12:07)
[2021-02-17] MEDS: MULTIVIT INFUSN ADULT K IV SCH ×10 (12:42→13:19)
[2021-02-17] MEDS: [UNRECOGNIZED DRUG - OTHER] IV SCH ×10 (12:42→13:19)
[2021-02-17] MEDS: POTASSIUM PHOS M BASIC D BASIC IV SCH ×10 (12:42→13:19)
[2021-02-17] MEDS: HYDROmorphone HCL 1 MG/ML DISP.SYRIN IV PRN ×2 (15:21→23:28)
[2021-02-18] MEDS: oxyCODONE HCL/ACETAMINOPHEN 1 TAB TABLET PO PRN ×2 (05:30→17:27)
[2021-02-18] MEDS: INSULIN LISPRO 100 UNITS/ML VIAL SC SCH ×4 (05:52→17:32)
[2021-02-18 07:07] LABS: Albumin * 2.1 gm/dl (3.4-5.0); Anion Gap 9.5 mmol/L (6.8-13.8); BUN/Creatinine Ratio 15.4 (9.0-21.6); Bilirubin, Total 0.5 mg/dL (0.0-1.1); Ca. Corrected For Albumin 9.5 mg/dL (8.4-10.2); Calcium * 8.3 mg/dL (7.9-10.9); Magnesium 1.8 mg/dL (1.2-2.8); Phosphorus 3.6 mg/dL (2.2-4.2); Potassium 3.5 mmol/L (3.4-4.6); Total Protein 6.4 gm/dL (6.2-8.2)
[2021-02-18] MEDS: PIPERACILLIN SODIUM/TAZOBACTAM 3.375 GM in DEXTROSE 5 % IN WATER 100 ML IV SCH ×4 (08:57→16:16)
[2021-02-18] MEDS ORDERED: DIATRIZOATE MEGLUMINE, SODIUM 30 ML BTL PO ONE (10:09)
--- NOTE | 2021-02-18 10:14 | PN ---
Subjective - Date and Time Seen Date: 02/18/21 Time: 10:11 Subjective Narrative: POD #12 left colon resection with Jaziel procedure for obstructing adenocarcinoma of the colon Vital signs normal Sleeping on rounds this morning, awake and visiting this afternoon.. Has ambulated already today. Has had gas pains and has passed liquid via colostomy. Potassium up to normal Objective - Review of Systems Generalized/Overall Review: Reports: Fatigue. Denies: Chills, Fever EENTM: Reports: No Symptoms Reported, Other - NG has been clamped Respiratory: Denies: Cough, Shortness of Breath Cardiac: Denies: Chest Pain, Palpitations Abdominal: Reports: Other - Took 1 pain shot last night. Comfortable today Genitourinary Symptoms: Reports: No Symptoms Reported Musculoskeletal Complaints: Reports: No Symptoms Reported Neurological: Reports: No Symptoms Reported Skin: Reports: No Symptoms Reported - Vitals Vitals: Last Vital Signs Temp 36.4 C 02/18/21 07:43 Pulse 84 02/18/21 07:43 Resp 20 02/18/21 07:43 BP 128/64 02/18/21 07:43 Pulse Ox 97 02/18/21 07:43 - Abnormal Lab Findings Abnormal Lab Findings: Abnormal Lab Results 02/18/21 Range/Units 06:50 Albumin 2.1 L (3.4-5.0) gm/dl - Exam Constitutional: Present: Alert, Oriented x3, Cooperative, No distress ENT Exam: Present: normal ENT inspection, other - NG in good position. Has dentures and Neck: Present: normal inspection Respiratory: Present: no respiratory distress Cardiovascular/Chest: Present: regular rate, rhythm Abdomen: Present: other - . Wound VAC intact still slightly distended but very soft. Active bowel sounds /Rectal: Present: Exam deferred Extremity: Present: normal range of motion Skin Exam: Present: normal color Neurologic: Present: pilot plant supervisor II-XII nml as tested, no motor/sensory deficits Appearance: Present: appropriate appearance, appropriate insight, no memory impairment Eye contact: Present: cooperative, good eye contact, normal speech Cauti Physician Documentation - Urinary Catheter Management Coude Urethral Indwelling: Yes Date of Insertion: 02/05/21 Time of Insertion: 15:55 Date of Removal: 02/11/21 Time of Removal: 13:40 Assessment/Plan Plan Narrative: Will repeat Gastroview challenge. Allow clear liquids. He tolerated some broth for lunch. He has slept most of the day but states he will get up again tonight. Spent time discussing his progress and the future after discharge with him and his . Will stick to clear liquids for now. He will ambulate again this evening. We will ask about ostomy teaching tomorrow. Wound VAC change tomorrow. - Problems/Diagnosis (1) Colonic obstruction Problem: Acute
[2021-02-18] MEDS: PANTOPRAZOLE SODIUM 40 MG in NORMAL SALINE 100 ML IV SCH (11:01)
[2021-02-18] MEDS ORDERED: MULTIVIT INFUSN ADULT K IV SCH ×6 (13:30)
[2021-02-18] MEDS ORDERED: [UNRECOGNIZED DRUG - OTHER] IV SCH ×6 (13:30)
[2021-02-18] MEDS ORDERED: POTASSIUM PHOS M BASIC D BASIC IV SCH ×6 (13:30)
[2021-02-18] MEDS: FAT EMULSIONS IV SCH (13:38)
[2021-02-18] MEDS: [UNRECOGNIZED DRUG - OTHER] IV SCH ×5 (14:55)
[2021-02-18] MEDS: POTASSIUM PHOS M BASIC D BASIC IV SCH ×5 (14:55)
[2021-02-18] MEDS: MULTIVIT INFUSN ADULT K IV SCH ×5 (14:55)
[2021-02-18] MEDS: ONDANSETRON HCL/PF 2 MG/ML VIAL IV PRN (17:38)
[2021-02-19] MEDS: PIPERACILLIN SODIUM/TAZOBACTAM 3.375 GM in DEXTROSE 5 % IN WATER 100 ML IV SCH ×6 (00:01→16:31)
[2021-02-19] MEDS ORDERED: POTASSIUM PHOS M BASIC D BASIC IV SCH ×5 (03:30)
[2021-02-19] MEDS ORDERED: POTASSIUM CHLORIDE IV SCH ×5 (03:30)
[2021-02-19] MEDS ORDERED: [UNRECOGNIZED DRUG - OTHER] IV SCH ×5 (03:30)
[2021-02-19] MEDS: INSULIN LISPRO 100 UNITS/ML VIAL SC SCH ×4 (06:30→17:07)
[2021-02-19 07:09] LABS: Albumin * 2.1 gm/dl (3.4-5.0); Anion Gap 8.7 mmol/L (6.8-13.8); BUN/Creatinine Ratio 15.4 (9.0-21.6); Bilirubin, Total 0.5 mg/dL (0.0-1.1); Ca. Corrected For Albumin 9.5 mg/dL (8.4-10.2); Calcium * 8.3 mg/dL (7.9-10.9); Carbon Dioxide 30.1 mmol/L (24-32.6); Phosphorus 3.9 mg/dL (2.2-4.2); Potassium 3.8 mmol/L (3.4-4.6); Total Protein 6.5 gm/dL (6.2-8.2)
--- NOTE | 2021-02-19 09:49 | PN ---
Subjective - Date and Time Seen Date: 02/19/21 Time: 09:47 Subjective Narrative: POD #13 left colon resection with Jaziel procedure for obstructing adenocarcinoma of the colon Vital signs normal He had some crampy abdominal pain yesterday evening, was replaced on low intermittent suction briefly. The pain resolved. He slept well last night. There is gas in the colostomy bag this morning Objective Objective Narrative: He passed a lot of gas several times today, no pain Got a little winded when walking, but got up and down in the chair 7-8 times for exercise as well - Review of Systems Generalized/Overall Review: Denies: Chills, Fever EENTM: Reports: No Symptoms Reported Respiratory: Denies: Cough, Shortness of Breath Cardiac: Denies: Chest Pain, Palpitations Abdominal: Reports: Other - No abdominal pain this morning Genitourinary Symptoms: Reports: No Symptoms Reported Musculoskeletal Complaints: Reports: No Symptoms Reported Neurological: Reports: No Symptoms Reported Skin: Reports: No Symptoms Reported - Vitals Vitals: Last Vital Signs Temp 37.2 C 02/19/21 07:07 Pulse 72 02/19/21 07:07 Resp 20 02/19/21 07:07 BP 145/65 02/19/21 07:07 Pulse Ox 95 02/19/21 07:07 - Abnormal Lab Findings Abnormal Lab Findings: Abnormal Lab Results 02/19/21 Range/Units 06:48 Albumin 2.1 L (3.4-5.0) gm/dl - Exam Constitutional: Present: Alert, Oriented x3, Cooperative, No distress ENT Exam: Present: normal ENT inspection, other - NG in good position. He has his dentures in Neck: Present: normal inspection Respiratory: Present: normal breath sounds, no respiratory distress Cardiovascular/Chest: Present: regular rate, rhythm Abdomen: Present: other - His abdomen is soft. There are bowel sounds. There is gas in the colostomy appliance /Rectal: Present: Exam deferred Extremity: Present: normal inspection Skin Exam: Present: normal color, warm/dry Neurologic: Present: forestry aid II-XII nml as tested, no motor/sensory deficits Appearance: Present: appropriate appearance, appropriate insight, neat, no memory impairment Eye contact: Present: cooperative, good eye contact, normal speech Thoughts: Present: normal thought pattern Cauti Physician Documentation - Urinary Catheter Management Coude Urethral Indwelling: Yes Date of Insertion: 02/05/21 Time of Insertion: 15:55 Date of Removal: 02/11/21 Time of Removal: 13:40 Assessment/Plan Plan Narrative: Wound VAC supplies for home are being arranged. We will try to arrange colostomy appliance teaching. Rx for supplies sent Encourage ambulation. Will D/C NG and advance to full liquids in AM - Problems/Diagnosis (1) Colonic obstruction Problem: Acute
[2021-02-19] MEDS: PANTOPRAZOLE SODIUM 40 MG in NORMAL SALINE 100 ML IV SCH (10:15)
[2021-02-19] MEDS: FAT EMULSIONS IV SCH (12:11)
[2021-02-19] MEDS: [UNRECOGNIZED DRUG - OTHER] IV SCH ×5 (17:58)
[2021-02-19] MEDS: MULTIVIT INFUSN ADULT K IV SCH ×5 (17:58)
[2021-02-19] MEDS: POTASSIUM PHOS M BASIC D BASIC IV SCH ×5 (17:58)
[2021-02-20] MEDS: PIPERACILLIN SODIUM/TAZOBACTAM 3.375 GM in DEXTROSE 5 % IN WATER 100 ML IV SCH ×4 (00:14→07:57)
[2021-02-20] MEDS: INSULIN LISPRO 100 UNITS/ML VIAL SC SCH ×4 (00:15→18:05)
[2021-02-20] MEDS: HYDROmorphone HCL 1 MG/ML DISP.SYRIN IV PRN ×2 (09:08→20:27)
[2021-02-20] MEDS: PANTOPRAZOLE SODIUM 40 MG in NORMAL SALINE 100 ML IV SCH (11:07)
[2021-02-20] MEDS: FAT EMULSIONS IV SCH (11:27)
--- NOTE | 2021-02-20 16:43 | PN ---
Subjective - Date and Time Seen Date: 02/20/21 Time: 16:37 Subjective Narrative: POD #14 left colon resection with Jaziel procedure for obstructing adenocarcinoma of the colon Vital signs normal Minimal abdominal pain. He tolerated full liquid breakfast. Gas and liquid in the colostomy. Objective - Review of Systems Generalized/Overall Review: Denies: Chills, Fever EENTM: Reports: No Symptoms Reported Respiratory: Denies: Cough, Shortness of Breath Cardiac: Denies: Chest Pain, Palpitations Abdominal: Reports: Other - Some incisional discomfort, but no abdominal pain like the other day Genitourinary Symptoms: Reports: No Symptoms Reported Musculoskeletal Complaints: Reports: No Symptoms Reported Neurological: Reports: No Symptoms Reported Skin: Reports: No Symptoms Reported - Vitals Vitals: Last Vital Signs Temp 36.8 C 02/20/21 14:40 Pulse 82 02/20/21 14:40 Resp 20 02/20/21 14:40 BP 136/59 02/20/21 14:40 Pulse Ox 94 02/20/21 14:40 - Exam Constitutional: Present: Alert, Oriented x3, Cooperative, No distress ENT Exam: Present: normal ENT inspection Neck: Present: normal inspection Respiratory: Present: no respiratory distress Cardiovascular/Chest: Present: regular rate, rhythm Abdomen: Present: other - The midline incision is granulating well. There is eschar in the base. Colostomy functioning Extremity: Present: normal range of motion, no calf tenderness Skin Exam: Present: normal color, warm/dry Neurologic: Present: blending line attendant II-XII nml as tested, normal cerebellar test, no motor/sensory deficits Appearance: Present: appropriate appearance, appropriate insight, neat, no memory impairment Eye contact: Present: cooperative, good eye contact, normal speech Thoughts: Present: normal thought pattern Cauti Physician Documentation - Urinary Catheter Management Coude Urethral Indwelling: Yes Date of Insertion: 02/05/21 Time of Insertion: 15:55 Date of Removal: 02/11/21 Time of Removal: 13:40 Assessment/Plan Plan Narrative: The eschar in the abdominal incision was debrided with pickups and forceps to remove nonviable tissue back to clean granulation. No anesthesia. Minimal bleeding. The wound VAC was replaced. We will continue full liquids tonight and potentially advance diet tomorrow. Orders for ostomy supplies were faxed. Arrangements are being made for wound VAC materials to be sent to his house, with follow-up through the wound center. Continue TPN, SCDs, encourage ambulation - Problems/Diagnosis (1) Colonic obstruction Problem: Acute
[2021-02-20] MEDS: POTASSIUM PHOS M BASIC D BASIC IV SCH ×5 (17:38)
[2021-02-20] MEDS: [UNRECOGNIZED DRUG - OTHER] IV SCH ×5 (17:38)
[2021-02-20] MEDS: MULTIVIT INFUSN ADULT K IV SCH ×5 (17:38)
[2021-02-21] MEDS: INSULIN LISPRO 100 UNITS/ML VIAL SC SCH ×4 (00:41→17:27)
[2021-02-21 06:50] LABS: Anion Gap 13.7 mmol/L (6.8-13.8); BUN/Creatinine Ratio 24.6 (9.0-21.6); Calcium * 8.5 mg/dL (7.9-10.9); Carbon Dioxide 23.5 mmol/L (24-32.6); Estimated Creat Clear 105.4; Potassium 4.2 mmol/L (3.4-4.6)
[2021-02-21] MEDS: PANTOPRAZOLE SODIUM 40 MG in NORMAL SALINE 100 ML IV SCH (10:26)
[2021-02-21] MEDS: FAT EMULSIONS IV SCH (11:36)
--- NOTE | 2021-02-21 17:39 | PN ---
Subjective - Date and Time Seen Date: 02/21/21 Time: 17:36 Subjective Narrative: POD #15 left colon resection with Jaziel procedure for obstructing adenocarcinoma of the colon Vital signs normal Had some fullness after the tomato soup last night, however has tolerated full liquids all day today. Good colostomy function. Objective - Review of Systems Generalized/Overall Review: Denies: Chills, Fever EENTM: Reports: No Symptoms Reported Respiratory: Reports: No Symptoms Reported Cardiac: Reports: No Symptoms Reported Abdominal: Reports: Other - Only some discomfort. The colostomy is working well Musculoskeletal Complaints: Reports: No Symptoms Reported Neurological: Reports: No Symptoms Reported Skin: Reports: No Symptoms Reported - Vitals Vitals: Last Vital Signs Temp 36.7 C 02/21/21 14:43 Pulse 83 02/21/21 14:43 Resp 24 H 02/21/21 14:43 BP 138/63 02/21/21 14:43 Pulse Ox 95 02/21/21 14:43 - Abnormal Lab Findings Abnormal Lab Findings: Abnormal Lab Results 02/20/21 02/21/21 Range/Units 08:50 06:31 Carbon Dioxide 23.5 L (24-32.6) mmol/L Est GFR (Non-Af Amer) 139 H (60-130) mL/min BUN/Creatinine Ratio 24.6 H (9.0-21.6) Random Glucose 118 H (70-110) mg/dL Prealbumin 18 L mg/dL - Exam Constitutional: Present: Alert, Oriented x3, No distress ENT Exam: Present: normal ENT inspection Neck: Present: normal inspection Respiratory: Present: no respiratory distress Cardiovascular/Chest: Present: regular rate, rhythm Abdomen: Present: other - . Wound VAC intact no abdominal distention. Gas and stool in the colostomy. LOTUS drain site has healed /Rectal: Present: Exam deferred Extremity: Present: normal range of motion Skin Exam: Present: normal color Neurologic: Present: rn advanced II-XII nml as tested, no motor/sensory deficits Appearance: Present: appropriate appearance, appropriate insight, no memory impairment Eye contact: Present: cooperative, good eye contact, normal speech Thoughts: Present: normal thought pattern Cauti Physician Documentation - Urinary Catheter Management Coude Urethral Indwelling: Yes Date of Insertion: 02/05/21 Time of Insertion: 15:55 Date of Removal: 02/11/21 Time of Removal: 13:40 Assessment/Plan Plan Narrative: We will advance diet to regular in the morning. Encouraged him to be out of bed. He is getting colostomy teaching. - Problems/Diagnosis (1) Colonic obstruction Problem: Acute
[2021-02-21] MEDS: [UNRECOGNIZED DRUG - OTHER] IV SCH ×5 (18:02)
[2021-02-21] MEDS: MULTIVIT INFUSN ADULT K IV SCH ×5 (18:02)
[2021-02-21] MEDS: POTASSIUM PHOS M BASIC D BASIC IV SCH ×5 (18:02)
[2021-02-22] MEDS: HYDROmorphone HCL 1 MG/ML DISP.SYRIN IV PRN ×2 (00:09→07:56)
[2021-02-22] MEDS: INSULIN LISPRO 100 UNITS/ML VIAL SC SCH ×4 (01:12→20:56)
--- NOTE | 2021-02-22 09:04 | PN ---
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 No pain this morning. Did not eat breakfast because wound VAC was being changed. Plans to get up today Objective - Review of Systems Generalized/Overall Review: Denies: Chills, Fever EENTM: Reports: No Symptoms Reported Respiratory: Reports: No Symptoms Reported. Denies: Cough, Shortness of Breath Cardiac: Reports: No Symptoms Reported. Denies: Chest Pain, Palpitations Abdominal: Reports: Other - Abdomen is not distended and has had good colostomy output Genitourinary Symptoms: Reports: No Symptoms Reported, Other - Voiding without difficulty Musculoskeletal Complaints: Reports: No Symptoms Reported Neurological: Reports: No Symptoms Reported Skin: Reports: No Symptoms Reported Misc: All systems neg except as marked - Vitals Vitals: Last Vital Signs Temp 37.0 C 02/22/21 06:34 Pulse 78 02/22/21 06:34 Resp 16 02/22/21 06:34 BP 131/59 02/22/21 06:34 Pulse Ox 96 02/22/21 06:34 - Abnormal Lab Findings Abnormal Lab Findings: Abnormal Lab Results 02/20/21 Range/Units 08:50 Prealbumin 18 L mg/dL - Exam Constitutional: Present: Alert, Oriented x3, Cooperative, No distress ENT Exam: Present: normal ENT inspection Neck: Present: normal inspection Respiratory: Present: no respiratory distress Cardiovascular/Chest: Present: regular rate, rhythm Abdomen: Present: other - His abdomen is soft and nondistended. There is gas and liquid in the colostomy. LOTUS site healed. The wound VAC dressing was changed. Good granulation. Some areas of soupy tissue (see procedure note) /Rectal: Present: Exam deferred Extremity: Present: normal range of motion, no pedal edema, no calf tenderness Skin Exam: Present: normal color, warm/dry Neurologic: Present: carpet binder II-XII nml as tested, no motor/sensory deficits Appearance: Present: appropriate appearance, appropriate insight, neat, no memory impairment Eye contact: Present: cooperative, good eye contact, normal speech Thoughts: Present: normal thought pattern Cauti Physician Documentation - Urinary Catheter Management Coude Urethral Indwelling: Yes Date of Insertion: 02/05/21 Time of Insertion: 15:55 Date of Removal: 02/11/21 Time of Removal: 13:40 Assessment/Plan Plan Narrative: PROCEDURE NOTE: Sloughed nonviable tissue was debrided with forceps and scissors back to clean bleeding granulation tissue. No anesthesia. Minimal bleeding controlled with pressure. New wound VAC foam applied with good seal. Will encourage ambulation and p.o. intake today. Will complete current bag of TPN with weaning to 40 mL/h for the last 2 hours to avoid hypoglycemia. Colostomy teaching. His home wound VAC supplies have arrived in the new vacuum/canister can be applied prior to discharge tomorrow with follow-up in the wound center Will arrange for home health for wound and ostomy care and education for these. We will plan for follow-up office visit and make a wound center appointment. Oncology consultation will be arranged at his first postop visit in the office. - Problems/Diagnosis (1) Colonic obstruction Problem: Acute
[2021-02-22] MEDS: PANTOPRAZOLE SODIUM 40 MG in NORMAL SALINE 100 ML IV SCH (10:50)
[2021-02-22] MEDS: FAT EMULSIONS IV SCH (11:00)
[2021-02-22] MEDS: [UNRECOGNIZED DRUG - OTHER] IV SCH ×5 (17:46)
[2021-02-22] MEDS: MULTIVIT INFUSN ADULT K IV SCH ×5 (17:46)
[2021-02-22] MEDS: POTASSIUM PHOS M BASIC D BASIC IV SCH ×5 (17:46)
[2021-02-23] MEDS: INSULIN LISPRO 100 UNITS/ML VIAL SC SCH ×2 (00:30→07:02)
[2021-02-23] MEDS: HYDROmorphone HCL 1 MG/ML DISP.SYRIN IV PRN (00:31)
--- NOTE | 2021-02-23 10:39 | DS ---
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 CT scan demonstrated an area of narrowing in the descending/sigmoid colon suspicious for tumor. He underwent colonoscopy on 02/05/2021 with the finding of an obstructing annular neoplastic lesion (biopsy proved positive for adenocarcinoma). He was taken to the operating room on 02/06/2021 where he underwent resection of the tumor was adherent to the lateral abdominal wall with a Jaziel procedure (and descending colostomy Jaziel pouch) the wound was packed open. Final diagnosis on the resected specimen revealed a pT4, pN0 adenocarcinoma the colon. Postoperatively he was maintained on NG suction and IV hydration with SCDs for VTE prophylaxis. A Adam catheter was utilized to monitor urine output, and it was removed timely. He initially had a epidural catheter for pain control, which was removed on POD #3. IV Dilaudid STAVE LOG CUT OFF SAW OPERATOR was then used. His wound was initially managed with iodoform packing. The wound center was consulted and a wound VAC placed and changed regularly. The wound evidence of good healing, he did require 2 sharp subcutaneous level debridements at the bedside to remove nonviable tissue. He had a prolonged ileus and a subclavian catheter was placed for TPN. He had gradual return of bowel function with diet advancement, and by 02/23/2021 he was tolerating regular diet. His colostomy evidence good function and he was instructed in ostomy care. He was able to ambulate independently. He was discharged home ambulatory with instructions not to lift. A prescription for Percocet 5/325 mg #40 was transmitted electronically. [facility] has been contacted and they verified they have all the paperwork needed to process the ostomy supplies at discharge so [facility] can [facility] the ostomy supplies. Ostomy supplies to go home with pt. Wound vac canister was switched to home unit before discharge. Extra canisters and dressings and tubing sent home with patient. [facility] phone representative for the area has been contacted; instructed that supplies will be sent to pt's home once pt is discharged and that Proof of Delivery document must be signed and faxed back prior to delivery. Unable to send any more wound vac supplies until pt is discharged from the hospital. Called and spoke with [facility] regarding discharge Thursday. Will fax discharge instructions. The wound vac needs to be changed by home health on Thursday. Home Health nurse states that if pt needs assistance over the weekend to call the health department phone number and the nurse counter sales person will answer any questions. Phone numbers and appointments made placed in pt discharge instructions. Arrangements for a future oncology consultation will be made at his first postoperative visit on 03/11/2021. A [id number] encounter was done on discharge. I certify that Tani Yoder is confined (homebound) to the home due to postop surgical status following complicated operation and recovery. His need for retirement involves wound care, monitoring of healing, wound VAC assistance and management, education and assistance with new colostomy, coordination of surgical follow-up. The need for home health care skilled services is directly related to the time spent [id number] with the person. Procedures Performed: see notes below - Colonoscopy with biopsy 02/05/2021, exploratory laparotomy with colon resection and Jaziel procedure on 02/06/2021, placement of right subclavian catheter to subcutaneous level wound debridementa at the bedside Results and Findings: Lab Pending Results 02/04/21 10:30: Urine Color Dark yellow, Urine Appearance Clear, Urine pH 6.0, Ur Specific [place] 1.025, Urine Protein 15 H, Urine Glucose (UA) Negative, Urine Ketones 50, Urine Blood Negative, Urine Nitrate Negative, Urine Bilirubin 3 H, Urine Urobilinogen Normal, Ur Leukocyte Esterase Negative, Urine RBC None seen, Urine WBC None seen, Ur Epithelial Cells 0-5, Urine Bacteria Trace, Urine Culture Comments No culture indicated 02/04/21 10:55: WBC 5.3, RBC 5.46, Hgb 15.3, Hct 46.6, MCV 85.3, MCH 28.0, MCHC 32.8, RDW 14.1 H, Plt Count 283, MPV 9.1, Immature Gran % (Auto) 0.40, Immature Gran # (Auto) 0.02, Neutrophils % 75.6 H, Lymphocytes % 15.2 L, Monocytes % 8.4, Eosinophils % 0.2, Basophils % 0.2, Nucleated RBC % 0.0, Neutrophils # 4.0, Lymphocytes # 0.80 L, Monocytes # 0.4, Eosinophils # 0.0, Absolute Basophils 0.0 02/04/21 10:55: Sodium 135, Plasma Sodium 135, Potassium 4.4, Chloride 97, Carbon Dioxide 28.1, Anion Gap 14.3 H, BUN 25 H, Creatinine 1.02, Est GFR (Non- Af Amer) 77, BUN/Creatinine Ratio 24.5 H, Random Glucose 99, Calcium 9.2, Calcium Adj for Albumin 9.1, Total Bilirubin 0.9, AST 16, ALT 18 L, Alkaline Phosphatase 94, Total Protein 8.3 H, Albumin 3.7 02/04/21 10:55: C-Reactive Prot, Quant 4.1 H, Lipase 32 L 02/04/21 15:51: SARS-CoV-2 (PCR) Not detected 02/05/21 16:15: Pathology Specimen Spec to path 02/06/21 19:24: Pathology Specimen Spec to path 02/07/21 06:16: WBC 6.4 D, RBC 4.12 L, Hgb 11.6 L, Hct 36.1 L, MCV 87.6, MCH 28.2, MCHC 32.1, RDW 14.3 H, Plt Count 165, MPV 9.6, Immature Gran % (Auto) 0.30, Immature Gran # (Auto) 0.02, Neutrophils % 89.1 H, Lymphocytes % 5.1 L, Monocytes % 5.3, Eosinophils % 0.0, Basophils % 0.2, Nucleated RBC % 0.0, Neutrophils # 5.7, Lymphocytes # 0.33 L, Monocytes # 0.3, Eosinophils # 0.0, A bsolute Basophils 0.0 02/07/21 06:16: Sodium 142, Plasma Sodium 142, Potassium 3.2 L D, Chloride 102, Carbon Dioxide 28.9, Anion Gap 14.3 H, BUN 19, Creatinine 1.19, Est GFR (Non-Af Amer) 64, BUN/Creatinine Ratio 16.0, Random Glucose 101, Calcium 7.6 L, Calcium Adj for Albumin 8.6, Total Bilirubin 0.9, AST 13, ALT 13 L, Alkaline Phosphatase 57, Total Protein 5.4 L, Albumin 2.3 L 02/09/21 07:25: WBC 7.3, RBC 3.78 L, Hgb 10.6 L, Hct 33.0 L, MCV 87.3, MCH 28.0, MCHC 32.1, RDW 14.6 H, Plt Count 143 L, MPV 10.1, Immature Gran % (Auto) 0.60 H, Immature Gran # (Auto) 0.04 H, Neutrophils % 85.0 H, Lymphocytes % 7.6 L, Monocytes % 4.8, Eosinophils % 1.9, Basophils % 0.1, Nucleated RBC % 0.0, Neutrophils # 6.2 H, Lymphocytes # 0.55 L, Monocytes # 0.4, Eosinophils # 0.1, Absolute Basophils 0.0 02/09/21 07:25: Sodium 136, Plasma Sodium 136, Potassium 3.6, Chloride 101, Carbon Dioxide 24.3, Anion Gap 14.3 H, BUN 12, Creatinine 0.68, Est GFR (Non-Af Amer) 123 D, BUN/Creatinine Ratio 17.6, Random Glucose 84, Calcium 7.7 L 02/10/21 06:28: Sodium 135, Plasma Sodium 135, Potassium 3.5, Chloride 99, C arbon Dioxide 24.9, Anion Gap 14.6 H, BUN 8, Creatinine 0.65, Est GFR (Non-Af Amer) 129, BUN/Creatinine Ratio 12.3, Random Glucose 85, Calcium 7.5 L 02/12/21 07:45: Sodium 132, Plasma Sodium 132, Potassium 3.6, Chloride 96 L, Carbon Dioxide 26.7, Anion Gap 12.9, BUN 7, Creatinine 0.56, Est GFR (Non-Af Amer) 153 H, BUN/Creatinine Ratio 12.5, Random Glucose 95, Calcium 7.9 02/14/21 06:30: WBC 5.9, RBC 3.59 L, Hgb 10.1 L, Hct 30.7 L, MCV 85.5, MCH 28.1, MCHC 32.9, RDW 14.8 H, Plt Count 257, MPV 9.8, Immature Gran % (Auto) 0.70 H, Immature Gran # (Auto) 0.04 H, Neutrophils % 77.3 H, Lymphocytes % 12.1 L, Monocytes % 7.0, Eosinophils % 2.7, Basophils % 0.2, Nucleated RBC % 0.0, Neutrophils # 4.5, Lymphocytes # 0.71 L, Monocytes # 0.4, Eosinophils # 0.2, Absolute Basophils 0.0 02/14/21 06:30: Sodium 137, Plasma Sodium 137, Potassium 3.4, Chloride 100, Carbon Dioxide 28.4, Anion Gap 12.0, BUN 5 L, Creatinine 0.65, Est GFR (Non-Af Amer) 129, BUN/Creatinine Ratio 7.7 L, Random Glucose 89, Calcium 7.8 L, Calcium Adj for Albumin 9.2, Total Bilirubin 0.6, AST 30, ALT 32, Alkaline Phosphatase 64, Total Protein 5.5 L, Albumin 1.8 L 02/14/21 06:30: Phosphorus 3.7, Magnesium 1.8, Triglycerides 121, Cholesterol 132 02/15/21 06:26: Sodium 136, Plasma Sodium 136, Potassium 3.5, Chloride 99, Carbon Dioxide 29.2, Anion Gap 11.3, BUN 3 L, Creatinine 0.62, Est GFR (Non-Af Amer) 136 H, BUN/Creatinine Ratio 4.8 L, Random Glucose 97, Calcium 7.9, Calcium Adj for Albumin 9.3, Phosphorus 3.2 D, Magnesium 1.8, Total Bilirubin 0.6, AST 23, ALT 31, Alkaline Phosphatase 61, Total Protein 5.9 L, Albumin 1.8 L 02/16/21 07:00: Sodium 137, Plasma Sodium 137, Potassium 3.1 L, Chloride 97, Carbon Dioxide 33.8 H, Anion Gap 9.3, BUN 6 D, Creatinine 0.62, Est GFR (Non-Af Amer) 136 H, BUN/Creatinine Ratio 9.7, Random Glucose 118 H, Calcium 7.8 L, Calcium Adj for Albumin 9.2, Phosphorus 3.1, Magnesium 1.8, Total Bilirubin 0.6, AST 21, ALT 27, Alkaline Phosphatase 57, Total Protein 5.6 L, Albumin 1.8 L 02/17/21 06:55: Sodium 138, Plasma Sodium 138, Potassium 3.2 L, Chloride 100, Carbon Dioxide 33.1 H, Anion Gap 8.1, BUN 9, Creatinine 0.63, Est GFR (Non-Af Amer) 134 H, BUN/Creatinine Ratio 14.3, Random Glucose 99, Calcium 7.8 L, Calcium Adj for Albumin 9.2, Phosphorus 3.6 D, Magnesium 1.7, Total Bilirubin 0.4, AST 19, ALT 26, Alkaline Phosphatase 59, Total Protein 5.8 L, Albumin 1.8 L 02/18/21 06:50: Sodium 138, Plasma Sodium 138, Potassium 3.5, Chloride 101, Carbon Dioxide 31.0, Anion Gap 9.5, BUN 10, Creatinine 0.65, Est GFR (Non-Af Amer) 129, BUN/Creatinine Ratio 15.4, Random Glucose 96, Calcium 8.3, Calcium Adj for Albumin 9.5, Phosphorus 3.6, Magnesium 1.8, Total Bilirubin 0.5, AST 20, ALT 27, Alkaline Phosphatase 75, Total Protein 6.4, Albumin 2.1 L 02/19/21 06:48: Sodium 137, Plasma Sodium 137, Potassium 3.8, Chloride 102, Carbon Dioxide 30.1, Anion Gap 8.7, BUN 10, Creatinine 0.65, Est GFR (Non-Af Amer) 129, BUN/Creatinine Ratio 15.4, Random Glucose 102, Calcium 8.3, Calcium Adj for Albumin 9.5, Phosphorus 3.9, Magnesium 2.0, Total Bilirubin 0.5, AST 15, ALT 25, Alkaline Phosphatase 94, Total Protein 6.5, Albumin 2.1 L 02/20/21 08:50: Prealbumin 18 L 02/21/21 06:31: Sodium 133, Plasma Sodium 133, Potassium 4.2, Chloride 100, Carbon Dioxide 23.5 L, Anion Gap 13.7, BUN 15, Creatinine 0.61, Est GFR (Non-Af Amer) 139 H, BUN/Creatinine Ratio 24.6 H, Random Glucose 118 H, Calcium 8.5 Discharge Location: Home Disposition: Home Health Service Home Health Agency: [facility] Home Health Condition: Stable Face to Face Encounter completed per CMS Guidelines: Yes Discharge Activity: Activity as tolerated, No Lifting Discharge Diet: General/regular food Problem Oriented Discharge Instructions to Patient/Family: Negative Pressure Wound Therapy Dressing Care Additional Patient Instructions (free text): [facility] at discharge- fax discharge summary, medication list, and orders to [phone]. [facility] to change wound vac on ThursdayFebruary 25. Send wound vac supplies home with patient. Additional wound vac supplies cannot be sent to your house until after you have been discharged from the hospital. If you have any problems over the weekend, please call the [facility] department at [phone] and press 1 to leave a message and a nurse will call you back. Wound Center appointment on February 28 at 10 AM. Ostomy supplies will be ordered from [facility] after you have been discharged from the hospital. You may call [facility] at [phone]. We will call MYLENE on Thursday to notify of your discharge date. Wound vac troubleshooting and supplies Phone: Follow up with on March 11 @ 1:00 p.m. Prescriptions (Any new or edited meds): oxyCODONE HCL/ACETAMINOPHEN [Percocet 5 MG/325 MG] 1 tab PO Q4H PRN #30 tab PRN Reason: Moderate Pain (Pain Scale 4-6) Transmission Status: Received by [facility] AS #[id number] Complete Home Medications List: Complete Home Medication List: multivitamin 1 tab PO DAILY 02/04/21 oxyCODONE HCL/ACETAMINOPHEN [Percocet 5 MG/325 MG] 1 tab PO Q4H PRN #30 tab 02/23/21 Forms: Patient Portal Registration
[2021-02-23] MEDS: PANTOPRAZOLE SODIUM 40 MG in NORMAL SALINE 100 ML IV SCH (10:50)
[2021-02-23 11:42] VITALS: BP 128/66
== END 2021-02-23 11:45 | disposition home health service (06) | DRG 330 ==
LOC: ER 10:39 → MS 10:39
PROVIDERS: ADMIT Surgery; ATTEND Surgery
DX: C79.89 Secondary malignant neoplasm of other specified sites; R20.0 Anesthesia of skin; C18.7 Malignant neoplasm of sigmoid colon; C18.6 Malignant neoplasm of descending colon